=== PATIENT | male | born 1965 | race Caucasian/White ===

== ENCOUNTER → 2017-08-03 | Outpatient (CLI) | payer OTHER ==
[~2017-08-03] MED LIST: ACET500T57 PO; ASPI-435 PO; CLB/200 PO; MTR600XX PO; OXYC1TAB3 PO
== END | disposition home or self-care (01) ==
LOC: C.RDSM 13:23
PROVIDERS: ATTEND Orthopaedic Surgery
DX: M25.562 Pain in left knee (principal)

== ENCOUNTER → 2017-08-04 | Outpatient (CLI) | payer OTHER ==
[2017-08-04 14:16] LABS: BASO % 0.3 %; BASO ABS # 0.03 K/uL (0-0.2); EOS % 0.7 %; HEMATOCRIT 44.8 % (42-52); IG% 0.2 %; LYMPH % 29.4 %; LYMPH ABS # 2.58 K/uL (1.2-3.4); MEAN CORPUSCULAR HEMOGLOBIN 31.5 pg (25-34); MONO % 7.5 %; NEUT % 61.9 %; PLATELET COUNT 337 K/uL (130-400); RED BLOOD COUNT 4.98 M/uL (4.7-6.1); WHITE BLOOD COUNT 8.77 K/uL (4.8-10.8)
[2017-08-04 14:27] LABS: BLOOD UREA NITROGEN 23 mg/dl (7-18); BUN/CREATININE RATIO 19.4 (10-20); CALCIUM 8.9 mg/dl (8.5-10.1); CARBON DIOXIDE 24 mmol/L (21-32); CHLORIDE 109 mmol/L (98-107); GLUCOSE 83 mg/dl (70-99); POTASSIUM 4.3 mmol/L (3.5-5.1); SODIUM 143 mmol/L (136-145)
[2017-08-04 14:31] LABS: COMPLETE YES
--- NOTE | 2017-08-08 15:03 | CODING QUERY NO DIAGNOSIS ---
: 1965 TREATMENT RENDERED WITHOUT A DIAGNOSIS To promote full compliance with coding requirements relating to patient care, physician participation is requested in all cases of auditing specialist uncertainty. Please assist us with providing a diagnosis/symptom for the test(s) below: A diagnosis/symptom was not documented on your Order. A valid diagnosis/symptom is required to bill all insurances. Please remember that we are unable to code a diagnosis of rule out, probable, possible, questionable, or suspected. Tests that require a diagnosis: DOS: 08/04/17 * CBC DIAGNOSIS: * BASIC METABOLIC DIAGNOSIS: * ELECTROLYTE DIAGNOSIS: Provider Signature: Date: Thank you Sharmaine Serrano Health Information Management Once completed, please kindly fax back to [phone] For questions please call [phone]
== END ==
LOC: C.LABSPEC 14:07
DX: Z01.89 Encounter for other specified special examinations (principal)

== ENCOUNTER → 2017-08-08 | Day surgery (SDC) | payer OTHER ==
[2017-08-05 08:39] VITALS: Ht 185.4 cm; Wt 61.4 kg
[~2017-08-08] VITALS: Ht 185.4 cm; Wt 61.4 kg
[~2017-08-08] MED LIST changes: +ATROPINE SULFATE 0.1 MG/ML 5ML SYR IV PRN; +CEFAZOLIN 2000 MG/60 ML D5W IV SCH; +DEXAMETHASONE SOD INJ 4 MG/ML VIAL ONE; +EpHEDrine SULFATE INJ 50 MG/ML AMP IV PRN; +EpINEphrine HCL INJ 1 MG/ML 5ML SYRINGE ONE; +FENTANYL CITRATE INJ 50 MCG/1 ML 2 ML VIAL ONE; +LACTATED RINGER'S 1000ML 1,000 ML IV SCH; +LIDO 2%/EPINEPHRINE 1:100000 20 ML VIAL INFIL ONE; +LIDOCAINE HCL 2% 2 ML VIAL (20MG/ML) ONE; +METOCLOPRAMIDE HCL INJ 5 MG/ML 2 ML VIAL IV PRN; +MIDAZOLAM HCL 1 MG/ML 2ML VIAL ONE; +MoRPHine SULFATE 4 MG/ML 1 ML CARP\\VIAL IV PRN; +ONDANSETRON INJ 2 MG/ML 2 ML VIAL IV PRN; +ONDANSETRON INJ 2 MG/ML 2 ML VIAL ONE; +OXYCODONE/ACETAMINOPHEN 5-325 TAB PO PRN; +PROMETHAZINE HCL INJ 12.5 MG in SODIUM CHLORIDE 0.9% 50ML 50 ML IV PRN; +PROPOFOL IV EMULSION 10 MG/ML 20 ML VIAL IV ONE; +ROPIVACAINE 0.5% 5 MG/ML 30 ML VIAL ONE; +SODIUM CHLORIDE 0.9% 1000ML 1,000 ML IV SCH
--- NOTE | 2017-08-08 06:26 | History & Physical Bridge - SC ---
H&P Re-Evaluation Bridge Note: I have examined the patient, reviewed the History & Physical and in the interval since the performance of the History & Physical I have noted the following changes of clinical significance: No changes noted
--- NOTE | 2017-08-08 09:56 | [facility] Post Operative Brief Note ---
Immediate Operative Summary Operative Date Aug 08, 2017. Pre-Operative Diagnosis Left Knee Displaced Fracture Of Tibial Spine Post-Operative Diagnosis Same Procedure(s) Performed Left Knee Arthroscopic Assistsed Fixation Of Tibial [place] Fracture, Partial Medial Meniscectomy, Synovectomy Surgeon Dr. Trent Photography Manager Surgeon(s) Albin Al PA-C Estimated Blood Loss 25 ml Findings tibial eminence fracture reduced and stabilized with 4 number two fiberwire sutures through bone tunnels. Suprapatellar plica excised. Medial meniscus tear non repairable, so excised. Fluids (cc crystalloids) 1200 cc Specimens None Drains None Anesthesia LMA with local Complication(s) None Disposition Recovery Room / PACU [facility]
--- NOTE | 2017-08-08 10:06 | [facility] Operative Report ---
Operative Report Operative Date Aug 08, 2017. Pre-Operative Diagnosis Left Knee Displaced Fracture Of Tibial Spine Post-Operative Diagnosis Same Procedure(s) Performed Left Knee Arthroscopic Assistsed Fixation Of Tibial [place] Fracture, Partial Medial Meniscectomy, Synovectomy Surgeon Dr. Trent Coat Maker Surgeon(s) Albin Al PA-C Estimated Blood Loss 25 ml Findings Anterior cruciate ligament was attached to the tibial eminence fracture which was comminuted. A bucket handle medial meniscus tear. Near complete suprapatellar plica Fluids (cc crystalloids) 1200 cc Specimens None Drains None Anesthesia LMA with local Complication(s) None Disposition Recovery Room / PACU Implants None Indications Mr. Jarquin is a 52-year-old gentleman who slipped while in assisted and sustained a tibial eminence fracture of the left knee. CT scan showed it to be displaced. He had a positive Tonie's test with popping in the front of his knee. He is unable to achieve full extension. Surgery is indicated to reduce and fix the fracture. We do not have a preoperative MRI scan but we did discuss the possibility of finding other pathology in his knee. All of his questions were answered. Informed consent was signed. Description of Procedure Patient was identified in the preoperative holding area. Surgical site was marked. He was brought back to the main operating room was placed the operative table in anesthesia was administered. All bony promises were padded. Perioperative antibiotics were administered. He was prepped and draped in the normal sterile fashion. Incision multidiscipline time was called. All neuroma in agreement. We began by creating anterior lateral portal. A superior medial outflow portal was created under direct visualization. There was a large amount of hematoma in the knee which was irrigated out. A standard anterior medial portal was created. Diagnostic arthroscopy was then undertaken revealing the following findings: There was a bucket-handle tear of the medial meniscus with a radial component extending from the body all the way to the root. This was felt to be a nonrepairable pattern. The articular chondral surfaces of the medial compartment showed grade 1 changes on the medial femoral condyle and medial tibial plateau diffusely. Lateral compartment showed grade 1 chondromalacia of the lateral tibial plateau and lateral femoral condyle. The lateral meniscus showed some mild fraying of the central edge which was debrided with the shaver. The notch showed the anterior cruciate ligament to be intact with attached to the displaced tibial eminence fracture. There were small osteochondral fragments along the anterior medial and medial aspects of the fracture fragment which were removed to prevent becoming a loose body. The suprapatellar pouch showed a complete suprapatellar plica. Once the diagnostic arthroscopy was completed the cautery wand and biter was used to excise the suprapatellar pouch. The synovectomy was continued into the medial and lateral compartments for a major synovectomy. We exposed the base of the anterior cruciate ligament. We were able to reduce the fracture into its anatomic location. It was not trapped under the inner meniscal ligament. I then introduced labral scorpion suture lasso to pass 3 FiberWire sutures through the substance of the anterior cruciate ligament. Drill tunnels were placed on the medial and lateral aspects of the fracture. A Hewson suture lasso was used to pass the sutures down through the tibia onto the anterior medial surface of the proximal tibia. I then pulled on these 3 sets of sutures and was able to reduce the fracture fairly well. However there is a part of his anterior anterior cruciate ligament at look like it needed another suture. Therefore I passed a fourth #2 FiberWire suture through the front of the anterior cruciate ligament and shuttled this down through the bone tunnels as well. At this point the arthroscope was removed. The leg was brought to full extension. Mini C-arm fluoroscopy was brought in. The strands of sutures were pulled on and I was able to reduce the fracture under fluoroscopic guidance. I then tied down each the sand strands of sutures individually. Excellent fixation was obtained. Next the camera was placed back in the joint. We confirmed the adequacy of reduction of her fracture. I then performed a partial medial meniscectomy using comminution of biters and shaver. The suprapatellar plica was excised and cautery was used to ensure there would be minimal postoperative bleeding. The arthroscopic inserts were then removed from the joint. 30 mL ropivacaine was used for postoperative pain control injected the portal sites with 10 mL into the knee. Wounds were closed with inverted 3-0 Monocryl sutures. Steri- Strips 2 x 2's and Tegaderms were placed. The patient is placed in a hinge knee brace brace locked into 10 of hyperextension. He was transferred awoken from anesthesia and transferred recovery room in stable condition. Postoperative course: The patient will be discharged back to his present facility today. He will follow up tomorrow in clinic for a wound check as well as to me with her physical therapist. We'll have him work on immediate range of motion exercises while nonweightbearing. He'll be able to ambulate with a hinge knee brace locked in full extension toe-touch weightbearing. DVT prophylaxis is with aspirin. I attest to the content of the Intraoperative Record and any orders documented therein. Any exceptions are noted below.
[2017-08-08] MEDS: FENTANYL CITRATE INJ 50 MCG/1 ML 2 ML VIAL IV PRN ×4 (10:13→10:44)
--- NOTE | 2017-08-08 10:14 | [facility] Operative Report ---
Operative Report Operative Date Aug 08, 2017. Pre-Operative Diagnosis Left Knee Displaced Fracture Of Tibial Spine Post-Operative Diagnosis Same Procedure(s) Performed Left Knee Arthroscopic Assistsed Fixation Of Tibial [place] Fracture, Partial Medial Meniscectomy, Synovectomy Surgeon Dr. Trent Chemistry Specialist Surgeon(s) Albin Al PA-C Estimated Blood Loss 25 ml Findings same Fluids (cc crystalloids) 1200 cc Specimens None Drains none Anesthesia general Complication(s) None Disposition Recovery Room / PACU Implants see Dr. Trent's operative note for further findings and detail Indications sustained injury to left lower extremity, CT scan obtained of the left lower extremity, surgery recommended, consents signed. Description of Procedure taken to the OR, prepped and draped, I was present the entire case, please see Dr. Trent's op note for further findings I attest to the content of the Intraoperative Record and any orders documented therein. Any exceptions are noted below.
--- NOTE | 2017-08-08 10:24 | Discharge Instructions-SurgCtr ---
Discharge Instructions Date of Service Aug 08, 2017. Visit Reason for Visit: Left Knee Displaced Fracture Of Tibial Spine Discharge Discharge Diagnosis / Problem: left knee arthroscopy Discharge Goals Goal(s): Decrease discomfort, Improve function, Increase independence Activity Recommendations Activity Limitations: as noted below Lifting Limitations: until after follow-up appointment Exercise/Sports Limitations: until after follow-up appointment Shower/Bathe: keep incision dry Weightbearing Status: Left partial (with crutches and brace locked in full extension. When seated/lying you may open the brace to work on range of motion) Anesthesia .. PLEASE ALLOW PATIENT TO BE IN THE [facility] DUE TO REQUIRING THE USE OF A BRACE THAT HAS METAL IMPLANTED Post Anesthesia Instructions: If you have had General Anesthesia or IV Sedation: * Do not drive today. * Resume driving when surgeon permits. * Do not make important decisions or sign legal documents today. * Call surgeon for: 1. Temperature elevations greater than 101 degrees F. 2. Uncontrollable pain. 3. Excessive bleeding. 4. Persistent nausea and vomiting. 5. Medication intolerance (nausea, vomiting or rash). * For nausea and vomiting use only clear liquids such as: tea, soda, bouillon until nausea subsides, then gradually increase diet as tolerated. * If you have any concerns or questions, call your surgeon's office. If physician is unavailable and it is an emergency, call 911 or go to the nearest emergency room. . Instructions / Follow-Up Instructions / Follow-Up DIET: * Resume previous diet. MEDICATIONS: * Please take your prescriptions as instructed at your pre-op appointment and/ or see medication discharge instructions listed above. * If concerns develop, call your physician's office at . SPECIAL CARE INSTRUCTIONS: * Ice/Elevate as instructed. * Keep dressing clean, dry, intact. * Your surgical extremity may be discolored due to prepping agents used on the skin. A bluish-green tint is a normal variant and should not cause alarm. Call your doctor at [phone] if: * Temperature above 101 degrees * Pain not relieved by pain medicine ordered * There is increased drainage or redness from any incision * You have any unanswered questions, problems or concerns. FOLLOW UP VISIT: * If not already scheduled, please call the office at to schedule a follow-up appointment. Diet Recommendations Home Diet: resume previous diet Procedures Procedures Performed: Left Knee Arthroscopic Assistsed Fixation Of Tibial [place] Fracture, Partial Medial Meniscectomy, Synovectomy Pending Studies Studies pending at discharge: no Medical Emergencies . Who to Call and When: Medical Emergencies: If at any time you feel your situation is an emergency, please call 911 immediately. . Non-Emergent Contact Non-Emergency issues call your: Primary Care Provider . . "Provider Documentation" section prepared by Levy Al. . [place] Drug Monitoring Program Search Results: no issues identified
[2017-08-08] MEDS: HYDROmorphone INJ 1 MG/ML SYR IV PRN ×2 (10:57→11:07)
[2017-08-08 11:00] VITALS: TEMP 37.5
[2017-08-08 12:26] VITALS: BP 124/81; PULSE 96; O2SAT 96
--- NOTE | 2017-08-08 12:31 | Anesthesia Progress Nt - [facility] ---
Anesthesia Post Op Note Date & Time Aug 08, 2017 at 12:30 Vital Signs Pain Intensity: 8.0 Vital Signs Past 12 Hours Date Time Temp Pulse Resp B/P (MAP) Pulse Ox O2 Delivery O2 Flow Rate FiO2 08/08/17 12:26 96 20 124/81 (95) 96 Room Air 08/08/17 11:46 97 20 142/88 (106) 97 Room Air 08/08/17 11:15 144/87 08/08/17 11:14 79 11 91 08/08/17 11:14 78 11 08/08/17 11:13 78 17 92 08/08/17 11:13 78 17 08/08/17 11:10 150/97 08/08/17 11:08 77 9 99 08/08/17 11:08 78 9 08/08/17 11:05 159/98 08/08/17 11:03 84 12 98 08/08/17 11:03 84 12 08/08/17 11:00 37.5 83 12 165/102 98 Room Air 08/08/17 11:00 165/102 08/08/17 10:58 80 14 08/08/17 10:58 79 14 95 08/08/17 10:57 85 14 96 08/08/17 10:57 85 14 08/08/17 10:55 176/94 08/08/17 10:52 78 20 08/08/17 10:52 77 20 99 08/08/17 10:50 163/95 08/08/17 10:47 77 14 08/08/17 10:47 77 14 97 08/08/17 10:45 165/102 08/08/17 10:42 77 16 08/08/17 10:42 77 16 100 08/08/17 10:40 153/105 08/08/17 10:37 76 16 100 08/08/17 10:37 76 16 08/08/17 10:36 175/96 08/08/17 10:32 80 15 08/08/17 10:32 80 15 98 08/08/17 10:30 159/107 08/08/17 10:27 80 18 178/94 99 08/08/17 10:27 80 18 08/08/17 10:26 173/155 08/08/17 10:23 79 16 08/08/17 10:23 79 16 99 08/08/17 10:21 147/121 08/08/17 10:18 86 17 08/08/17 10:18 17 08/08/17 10:17 143/90 08/08/17 10:13 90 23 08/08/17 10:13 91 23 100 08/08/17 10:08 84 15 135/106 08/08/17 10:08 15 08/08/17 10:03 36.5 94 12 135/106 96 Diffusion Mask 10 08/08/17 06:30 36.5 71 16 130/85 (100) 97 Room Air Notes Mental Status: alert / awake / arousable, participated in evaluation Pt Amnestic to Procedure: Yes Nausea / Vomiting: adequately controlled Pain: adequately controlled Airway Patency, RR, SpO2: stable & adequate BP & HR: stable & adequate Hydration State: stable & adequate Anesthetic Complications: no major complications apparent Doing well. Pain controlled. VSS
== END | disposition home or self-care (01) ==
LOC: X.SURG 06:12
PROVIDERS: ATTEND Orthopaedic Surgery
DX: S82.112A Displaced fracture of left tibial spine, initial encounter for closed fracture (principal); S83.242A Other tear of medial meniscus, current injury, left knee, initial encounter; M67.52 Plica syndrome, left knee; W18.40XA Slipping, tripping and stumbling without falling, unspecified, initial encounter; Y92.149 Unspecified place in prison as the place of occurrence of the external cause; Z87.891 Personal history of nicotine dependence

== ENCOUNTER → 2017-08-23 | Outpatient (CLI) | payer OTHER ==
[~2017-08-23] MED LIST changes: -ATROPINE SULFATE 0.1 MG/ML 5ML SYR IV PRN; -CEFAZOLIN 2000 MG/60 ML D5W IV SCH; -DEXAMETHASONE SOD INJ 4 MG/ML VIAL ONE; -EpHEDrine SULFATE INJ 50 MG/ML AMP IV PRN; -EpINEphrine HCL INJ 1 MG/ML 5ML SYRINGE ONE; -FENTANYL CITRATE INJ 50 MCG/1 ML 2 ML VIAL ONE; -LACTATED RINGER'S 1000ML 1,000 ML IV SCH; -LIDO 2%/EPINEPHRINE 1:100000 20 ML VIAL INFIL ONE; -LIDOCAINE HCL 2% 2 ML VIAL (20MG/ML) ONE; -METOCLOPRAMIDE HCL INJ 5 MG/ML 2 ML VIAL IV PRN; -MIDAZOLAM HCL 1 MG/ML 2ML VIAL ONE; -MTR600XX PO; -MoRPHine SULFATE 4 MG/ML 1 ML CARP\\VIAL IV PRN; -ONDANSETRON INJ 2 MG/ML 2 ML VIAL IV PRN; -ONDANSETRON INJ 2 MG/ML 2 ML VIAL ONE; -OXYC1TAB3 PO; -OXYCODONE/ACETAMINOPHEN 5-325 TAB PO PRN; -PROMETHAZINE HCL INJ 12.5 MG in SODIUM CHLORIDE 0.9% 50ML 50 ML IV PRN; -PROPOFOL IV EMULSION 10 MG/ML 20 ML VIAL IV ONE; -ROPIVACAINE 0.5% 5 MG/ML 30 ML VIAL ONE; -SODIUM CHLORIDE 0.9% 1000ML 1,000 ML IV SCH
== END | disposition home or self-care (01) ==
LOC: C.RDSM 15:45
PROVIDERS: ATTEND Orthopaedic Surgery
DX: M25.562 Pain in left knee (principal)

== ENCOUNTER → 2017-11-17 | Outpatient (CLI) | payer OTHER ==
[~2017-11-17] MED LIST changes: -ACET500T57 PO; -CLB/200 PO
== END | disposition home or self-care (01) ==
LOC: C.MAMM 08:27
PROVIDERS: ATTEND Family Medicine
DX: M85.80 Other specified disorders of bone density and structure, unspecified site (principal)

== ENCOUNTER → 2017-12-01 | Outpatient (CLI) | payer OTHER | END | disposition home or self-care (01) | LOC: C.RDSM 17:18 | PROVIDERS: ATTEND Orthopaedic Surgery | DX: Z87.81 Personal history of (healed) traumatic fracture (principal) ==

== ENCOUNTER 2024-07-08 23:07 | Inpatient (IN) ==
[2024-07-08] MEDS ORDERED: VANCOMYCIN CONSULT ACTIVE PRN (23:32)
--- NOTE | 2024-07-09 00:06 | Emergency Department Note ---
Impression & Plan Abdominal wound dehiscence, Sepsis ED Provider Note ED Provider Note NAME: CHAS [id number] BRONWYN AGE:59 SEX: Male : 1965 ARRIVES VIA: EMS INFORMANT: Patient ED PROVIDER(s): Michelle Marshall DO CHIEF COMPLAINT: Drainage from wound HPI: This is a 59-year-old male presents emergency department from a local correctional facility due to concern for leakage/drainage from a wound. Patient states this began earlier today. He states he has been having fevers and chills, had decreased appetite, however no overt vomiting, no diarrhea. States he did have some increased pain along the abdominal wound. Patient states he was hospitalized on the [place] for a month following complications from a surgery for his gallbladder. Patient cannot provide many details. He states he is not currently taking any antibiotics. PAST MEDICAL HISTORY:See Below PAST SURGICAL HISTORY:See Below FAMILY HISTORY:See Below SOCIAL HISTORY:See Below HOME MEDICATIONS:See Below ALLERGIES:See Below VITALS:See Below PHYSICAL EXAMINATION: GENERAL: alert, well appearing, well nourished, no distress, non-toxic EYE EXAM: normal conjunctiva, PERRL and EOM's grossly intact OROPHARYNX: no exudate, no erythema, lips, buccal mucosa, and tongue normal and mucous membranes are moist NECK: supple, no nuchal rigidity, no adenopathy, non-tender LUNGS: Clear to auscultation. Normal chest wall mechanics, no w/r/r HEART: no murmurs, S1 normal and S2 normal ABDOMEN: abdomen soft, dehiscence noted from the superior aspect of the midline vertical incision with active purulent drainage noted, surrounding induration approximately 6 cm in radius decrease bowel sounds, no masses, no rebound or guarding. BACK: Back is symmetrical on inspection and there is no deformity, no midline tenderness, no CVA tenderness. SKIN: no rashes, petechiae, orbruising UPPER EXTREMITIES: upper extremities are grossly normal. FROM, nml pulses b/l. LOWER EXTREMITIES: No pitting edema. FROM, nml pulses b/l. NEURO EXAM: Normal sensorium, cranial nerves II-XII grossly intact, normal speech, no facial droop,nogross weakness of arms, no gross weakness of legs. Gross sensation intact. No ataxia. Vital Signs: reviewed and remarkable Differential Diagnosis: abscess, wound dehiscence, seroma, intraabdominal infection, cellulitis, retained suture, sbo, perforation, sepsis, as well as others were considered MEDICAL DECISION MAKING: This is a 59-year-old male presents emergency department from a local correctional facility due to concern for wound dehiscence and possible infection. Patient with complicated recent surgical course after spending 1 month at [facility] in [place] with several operations. Patient ill-appearing on arrival, and copious purulent material noted draining from the superior edge of his vertical midline incision where the wound had dehisced. Patient noted to be tachycardic on arrival however was otherwise afebrile and hemodynamically stable. Labs drawn and sent, IV established, EKG performed at bedside and interpreted by me and patient monitor on telemetry. I was able to express copious amounts of discharge from the area of wound dehiscence, a culture was obtained and sent additionally. Patient started on IV fluids, blood culture obtained, and IV antibiotics added. Patient sent for CT of the abdomen and pelvis. CT read shows this to be a superficial abdominal wall abscess, and does not note any deeper wound infection or other intra-abdominal abscesses. Patient noted to have a leukocytosis here and did have persistent tachycardia. Patient given IV Tylenol for pain. He did receive 30 mL/KG of IV fluids. Heart rate did continue to improve with IV fluid resuscitation. Given concern for evolving sepsis, wound dehiscence, and wound infection, case discussed with on- call general surgery. They felt patient could be admitted here by medicine and seen in consult and did not need urgent transfer to [place]. Case discussed with the hospitalist team for additional evaluation and management. Consultation(s): 0004: Discussed with YOUNG Ruiz in [facility] They confirmed patient was discharged from [facility] on June 06 and went to [facility] for 1 week. On June 14 he returned to the [facility] and was continued on micafungin and Zosyn until June 21. They state a repeat blood culture was drawn on Tuesday due to concern for a decline in the patient's appetite, weakness, fatigue, and concern for following up his recent complicated course and infections. Patient had an outpatient chest x-ray and KUB which were reassuring. This evening then patient developed a temperature to 100.3 F at the facility. Staff also note patient had begun refusing his Lovenox injections after July 06. They do state the 1 drain noted has not had any drainage and seems to be full of air, and the second drain has 5 to 10 mL almost daily. 0533: Discussed with Dr. Carballo. Feels patient can be admitted here and he will see him in consult. 0545: Discussed with Dr. Clark, [facility] hospitalist, for additional evaluation and mgmt. ER Treatment Provided: See below Diagnostics Interpreted By Me: -ECG: Normal sinus at 97, normal axis, normal intervals, no acute ST/T wave changes -Cardiac Monitoring: An order was placed for continuous cardiac monitoring. The monitor shows a rate of 112 with sinus tachycardia rhythm. -Laboratory studies: As stated above and show below. -Imaging studies: CT A/P: No intra-abdominal abscess, superficial abscess noted along incision Triage Nursing Note Reviewed Prior/Outside Records Reviewed -discharge summary from [facility] on 06/06/2024 reviewed Critical Care: Critical care of 48 min performed to assess and manage high likelihood of life- threatening wound infection and dehiscence, involving labs and imaging performed with assessment to evaluate wound infection and dehiscence diagnosis with frequent reassessment. This time includes bedside time, treatment discussions with patient/family/consultants, documentation time and excludes procedure time. Past Med/Surg History Problem List Sepsis (Acute) Abdominal wound dehiscence (Acute) Social History Smoking Status: Never smoker Second Hand Exposure: Yes; Do You Dip or Chew Tobacco: No; Tobacco Cessation Education Requested by Patient: No Hx Alcohol Use: No Hx Substance Use: No Preferred Language: Syriac Legal Project Manager Required: No Beliefs That Will Affect Care: None Current Living Situation: Other Current Living Situation Comment: [facility] Other Information That Helps Us Care for You: No Feels Safe at Home: Yes Safety Concerns: Feels Safe At This Time Assistive Devices: None Allergies Allergies Allergy/AdvReac Type Severity Reaction Status Date / Time No Known Allergies Allergy Verified 07/09/24 00:20 Home Meds Home Medications Medication Instructions Recorded Confirmed acetaminophen 500 mg tablet 1,000 mg PO TID PRN Pain 07/09/24 07/09/24 (Tylenol Extra Strength) cefazolin 1 gram/50 mL in dextrose 50 ml IV Q6H 07/09/24 07/09/24 (iso-osmotic) intravenous piggyback cyanocobalamin (vitamin B-12) 1,000 mcg IM WK 07/09/24 07/09/24 1,000 mcg/mL injection solution docusate sodium 100 mg capsule 100 mg PO BID PRN Constipation 07/09/24 07/09/24 enoxaparin 40 mg/0.4 mL 40 mg subcut DAILY 07/09/24 07/09/24 subcutaneous syringe (Lovenox) magnesium hydroxide 400 mg/5 mL 15 ml PO DAILY PRN Constipation 07/09/24 07/09/24 oral suspension (Milk of Magnesia) nortriptyline 50 mg capsule 50 mg PO HS 07/09/24 07/09/24 omeprazole 20 mg capsule,delayed 20 mg PO DAILY 07/09/24 07/09/24 release polyethylene glycol 3350 17 17 g PO DAILY PRN Constipation 07/09/24 07/09/24 gram/dose oral powder (Miralax) sennosides 15 mg tablet (Laxative 15 mg PO DAILY 07/09/24 07/09/24 (sennosides)) Results & Data (ED) Vital Signs Vital Signs - 24 hr 07/08/24 23:13 07/08/24 23:45 07/08/24 23:53 Temperature 36.7 C 37.1 C Temperature Source Oral Oral Pulse Rate 132 H 114 H Pulse Rate [Right Finger] 113 H Respiratory Rate 15 Blood Pressure 113/69 Blood Pressure [Right Arm] 116/77 Blood Pressure Mean 83 Blood Pressure Mean [Right Arm] 90 Pulse Oximetry 95 94 Oxygen Delivery Method Room Air Room Air Sepsis Recent Fever Within 48 Hours Yes Sepsis New/Unexplained Change in Mental Status No Sepsis Action Taken by Nursing No Action Required 07/09/24 01:00 07/09/24 03:00 07/09/24 03:45 Temperature Temperature Source Pulse Rate 94 H Pulse Rate [Right Finger] 105 H 94 H Respiratory Rate 25 H 27 H Blood Pressure Blood Pressure [Right Arm] 140/82 104/72 Blood Pressure Mean Blood Pressure Mean [Right Arm] 101 82 Pulse Oximetry 95 94 Oxygen Delivery Method Room Air Room Air Sepsis Recent Fever Within 48 Hours Sepsis New/Unexplained Change in Mental Status Sepsis Action Taken by Nursing 07/09/24 05:00 Temperature Temperature Source Pulse Rate Pulse Rate [Right Finger] 88 Respiratory Rate 21 Blood Pressure Blood Pressure [Right Arm] 91/61 L Blood Pressure Mean Blood Pressure Mean [Right Arm] 71 Pulse Oximetry 95 Oxygen Delivery Method Room Air Sepsis Recent Fever Within 48 Hours Sepsis New/Unexplained Change in Mental Status Sepsis Action Taken by Nursing Laboratory Data 07/10/24 05:33 07/10/24 05:33 Lab Results 07/09/24 07/09/24 Range/Units 01:01 01:46 WBC 18.86 H (4.8-10.8) K/ul RBC 3.79 L (4.70-6.10) M/uL Hgb 10.1 L (14.0-18.0) g/dl Hct 31.8 L (42.0-52.0) % MCV 83.9 (80.0-100.0) fL MCH 26.6 (25.0-34.0) pg MCHC 31.8 L (32.0-36.0) g/dL RDW Std Deviation 47.6 H (36.4-46.3) fL RDW Coeff of [place] 15.7 H (11.5-14.5) % Plt Count 515 H (130-400) K/uL MPV 9.5 (9.4-12.4) fL Immature Gran % (Auto) 0.5 % Neut % (Auto) 73.4 % Lymph % (Auto) 15.2 % [place] % (Auto) 8.9 % Eos % (Auto) 1.6 % Baso % (Auto) 0.4 % Neut # (Auto) 13.86 H (1.40-6.50) K/uL Lymph # (Auto) 2.86 (1.20-3.40) K/uL [place] # (Auto) 1.68 H (0.11-0.59) K/uL Eos # (Auto) 0.30 (0.00-0.50) K/uL Baso # (Auto) 0.07 (0.00-0.20) K/uL Immature Gran # (Auto) 0.09 (0.01-0.20) K/uL PT 12.3 H (9.0-12.0) Seconds INR 1.1 (0.9-1.1) Sodium 133 L (136-145) mmol/L Potassium 3.3 L (3.5-5.1) mmol/L Chloride 96 L (98-107) mmol/L Carbon Dioxide 28 (21-32) mmol/L Anion Gap 9 (3-11) BUN 22 (6-23) mg/dl Creatinine 0.73 (0.6-1.4) mg/dl Est Cr Clr Drug Dosing 102.3 ml/min Est GFR ( Amer) 117.7 ml/min Est GFR (Non-Af Amer) 101.5 ml/min BUN/Creatinine Ratio 30.1 H (10-20) Glucose 126 H (70-99(Fasting)) mg/dl Calcium 8.9 (8.6-10.3) mg/dl Magnesium 1.7 (1.7-2.4) mg/dl Total Bilirubin 0.7 (0.2-1.0) mg/dl AST 22 (13-39) U/L ALT 13 (7-52) U/L Alkaline Phosphatase 123 H (34-104) U/L Troponin I High Sens 15.5 (0-20) pg/ml Total Protein 8.3 (6.0-8.3) gm/dl Albumin 3.4 (3.4-5.0) gm/dl Globulin 4.9 H (2.5-4.0) gm/dl Albumin/Globulin Ratio 0.7 L (0.9-2) Lipase 167 H (11-82) U/L Procalcitonin 0.13 (0-0.5) ng/ml Administered Medications Acetaminophen (Acetaminophen 325 Mg Tab) 650 mg PO Q4H PRN PRN Reason: Pain or Fever Stop: 08/09/24 00:16 Last Admin: 07/10/24 00:30 Dose: 650 mg Documented By: JODI Piperacillin Sod/Tazobactam Sod (Zosyn) 4.5 gm in 100 mls @ 25 mls/hr IV Q8H [facility] Stop: 07/16/24 07:59 Last Admin: 07/10/24 08:37 Dose: 25 mls/hr Documented By: Infusion: 07/10/24 03:56 Dose: Infused Documented By: Admin: 07/09/24 23:53 Dose: 25 mls/hr Documented By: Infusion: 07/09/24 19:31 Dose: Infused Documented By: Admin: 07/09/24 15:17 Dose: 25 mls/hr Documented By: Infusion: 07/09/24 11:16 Dose: Infused Documented By: Admin: 07/09/24 07:49 Dose: 25 mls/hr Documented By: ALEXSANDER Dextrose/Sodium Chloride (D5w And Nss) 1,000 mls @ 80 mls/hr IV .[id number] AYLIN Stop: 08/08/24 14:29 Last Admin: 07/10/24 03:53 Dose: 80 mls/hr Documented By: Infusion: 07/10/24 03:53 Dose: Infused Documented By: Admin: 07/09/24 15:17 Dose: 80 mls/hr Documented By: CLAYTON Vancomycin HCl 1,000 mg/ (Sodium Chloride) 270 mls @ 200 mls/hr IV Q8H AYLIN Stop: 07/20/24 07:59 Last Admin: 07/10/24 08:37 Dose: 200 mls/hr Documented By: JONES Morphine Sulfate (Morphine Sulfate 2 Mg/Ml Carp) 1 mg IV Q4H PRN PRN Reason: Moderate Pain (Scale 4, 5, 6) Stop: 07/23/24 13:59 Last Admin: 07/09/24 20:03 Dose: 1 mg Documented By: JODI Morphine Sulfate (Morphine Sulfate 2 Mg/Ml Carp) 2 mg IV Q6H PRN PRN Reason: Severe Pain (Scale 7, 8, 9,10) Stop: 07/23/24 13:59 Last Admin: 07/10/24 06:33 Dose: 2 mg Documented By: Admin: 07/10/24 00:28 Dose: 2 mg Documented By: JODI Nortriptyline HCl (Nortriptyline Hcl 25 Mg Cap) 50 mg PO HS [facility] Stop: 08/08/24 20:59 Last Admin: 07/09/24 20:04 Dose: 50 mg Documented By: JODI Pantoprazole Sodium (Pantoprazole 40 Mg Tab) 40 mg PO DAILY AYLIN Stop: 08/08/24 09:29 Last Admin: 07/10/24 08:37 Dose: 40 mg Documented By: Admin: 07/09/24 10:04 Dose: 40 mg Documented By: ALEXSANDER Discontinued Medications Sodium Chloride (Nss) 1,000 mls @ 250 mls/hr IV .Q4H AYLIN Stop: 08/07/24 23:44 Last Infusion: 07/09/24 12:26 Dose: Infused Documented By: Infusion: 07/09/24 12:26 Dose: Infused Documented By: Admin: 07/09/24 07:49 Dose: 250 mls/hr Documented By: Infusion: 07/09/24 07:39 Dose: Infused Documented By: Infusion: 07/09/24 04:16 Dose: 250 mls/hr Documented By: Infusion: 07/09/24 03:48 Dose: 0 mls/hr Documented By: Admin: 07/09/24 03:46 Dose: 250 mls/hr Documented By: Infusion: 07/09/24 03:46 Dose: Infused Documented By: Admin: 07/09/24 00:50 Dose: 250 mls/hr Documented By: OLAYINKA Vancomycin HCl 1,250 mg/ (Sodium Chloride) 525 mls @ 200 mls/hr IV NOW ONE Stop: 07/09/24 02:09 Last Infusion: 07/09/24 04:18 Dose: Infused Documented By: Admin: 07/09/24 00:51 Dose: 200 mls/hr Documented By: OLAYINKA Piperacillin Sod/Tazobactam Sod (Zosyn) 4.5 gm in 100 mls @ 200 mls/hr IV NOW ONE Stop: 07/09/24 00:01 Last Infusion: 07/09/24 01:55 Dose: Infused Documented By: Admin: 07/09/24 00:55 Dose: 200 mls/hr Documented By: OLAYINKA Sodium Chloride (Nss) 1,000 mls @ 999 mls/hr IV .Q1H1M ONE Stop: 07/09/24 03:37 Last Infusion: 07/09/24 04:17 Dose: Infused Documented By: Admin: 07/09/24 02:47 Dose: 999 mls/hr Documented By: OLAYINKA Acetaminophen (Ofirmev) 1,000 mg in 100 mls @ 400 mls/hr IV NOW STA Stop: 07/09/24 03:12 Last Infusion: 07/09/24 04:16 Dose: Infused Documented By: Admin: 07/09/24 03:43 Dose: 400 mls/hr Documented By: OLAYINKA Sodium Chloride (Nss) 1,000 mls @ 999 mls/hr IV .Q1H1M ONE Stop: 07/09/24 05:54 Last Infusion: 07/09/24 07:40 Dose: Infused Documented By: Admin: 07/09/24 05:39 Dose: 999 mls/hr Documented By: OLAYINKA Sodium Chloride (Nss) 500 mls @ 500 mls/hr IV .Q1H AYLIN Stop: 07/09/24 07:44 Last Infusion: 07/09/24 12:26 Dose: Infused Documented By: Admin: 07/09/24 10:05 Dose: 500 mls/hr Documented By: ALEXSANDER Sodium Chloride (Nss) 1,000 mls @ 70 mls/hr IV .[id number] AYLIN Stop: 08/08/24 09:10 Last Infusion: 07/09/24 15:33 Dose: Infused Documented By: Admin: 07/09/24 10:05 Dose: 125 mls/hr Documented By: ALEXSANDER Acetaminophen (Ofirmev) 1,000 mg in 100 mls @ 400 mls/hr IV Q8H PRN PRN Reason: Pain or Fever Stop: 07/12/24 11:44 Last Infusion: 07/09/24 13:03 Dose: Infused Documented By: Admin: 07/09/24 12:26 Dose: 400 mls/hr Documented By: ALEXSANDER Vancomycin HCl 1,250 mg/ (Sodium Chloride) 275 mls @ 200 mls/hr IV Q12H [facility] Stop: 07/19/24 09:59 Last Infusion: 07/09/24 23:52 Dose: Infused Documented By: Admin: 07/09/24 22:23 Dose: 200 mls/hr Documented By: Infusion: 07/09/24 13:03 Dose: Infused Documented By: Admin: 07/09/24 11:15 Dose: 200 mls/hr Documented By: ALEXSANDER Ioversol (Optiray 320 100ml) 94 ml IV ONCE ONE Stop: 07/09/24 03:28 Last Admin: 07/09/24 03:27 Dose: 94 ml Documented By: KRYSTINA Morphine Sulfate (Morphine Sulfate 2 Mg/Ml Carp) 2 mg IV NOW STA Stop: 07/09/24 08:05 Last Admin: 07/09/24 08:18 Dose: 2 mg Documented By: ALEXSANDER Imaging Data Radiologist's Impression: Abdomen/Pelvis CT 07/08/24 23:40 Exam(s): CT ABDOMEN + PELVIS With Contrast IV Amt: 94 cc's optiray 320 EXAM: CT Abdomen and Pelvis With Intravenous Contrast CLINICAL HISTORY: Reason for exam: wound dehiscence, abscess midline. TECHNIQUE: Axial computed tomography images of the abdomen and pelvis with intravenous contrast. CTDI is 22.5 mGy and DLP is 1390.21 mGy-cm. Automated exposure control was utilized for the study. A dose lowering technique was utilized adhering to the principles of ALARA. CONTRAST: Patient received 94 cc's optiray 320 of IV contrast COMPARISON: 05/05/2024. FINDINGS: Lung bases: There are trace bilateral pleural effusions. There are bibasilar areas of atelectasis and/or consolidation. There is a small pericardial effusion. ABDOMEN: Liver: There are rounded lucencies within the liver, the largest which measures 13 mm in size. Gallbladder and bile ducts: The patient is status post cholecystectomy. A biliary stent is noted. Pancreas: No mass. No ductal dilation. Spleen: No splenomegaly. Adrenals: No mass. Kidneys and ureters: No solid mass. No hydronephrosis. Stomach and bowel: There is air and fluid noted within the stomach. There is air and stool noted in the colon. There are some mildly dilated loops of small bowel containing air and fluid. The overall bowel gas pattern may represent an ileus.. PELVIS: Appendix: No findings to suggest acute appendicitis. Bladder: No calculi are noted within the bladder.. Reproductive: The prostate gland is enlarged.. ABDOMEN and PELVIS: Intraperitoneal space: No free air. A percutaneous drainage catheter is noted with its tip in the region of the hepatic hilum. A second percutaneous drainage catheter is noted with its tip in the left upper quadrant Bones/joints: There are some degenerative changes in the spine. Soft tissues: There is a soft tissue wound noted in the anterior abdominal wall with subcutaneous emphysema. There are inflammatory changes noted. There is a 1.6 x 1.3 x 5.5 cm fluid collection. There is some high-density material noted in the region the umbilicus. Vasculature: No abdominal aortic aneurysm. Lymph nodes: No enlarged lymph nodes. IMPRESSION: There is a soft tissue wound noted in the anterior abdominal wall with subcutaneous emphysema. There are inflammatory changes noted. There is a 1.6 x 1.3 x 5.5 cm fluid collection. This may represent an abscess or seroma. There is some high-density material noted in the region the umbilicus. This may represent contrast. There are trace bilateral pleural effusions with bibasilar areas of atelectasis and/or consolidation. Rounded lucencies within the liver may represent cysts. See discussion above Electronically signed by: Cole Lew MD 07/09/24 04:11 AM Discharge Plan Visit Data Chief Complaint: Wound Dehiscence Stated Complaint: STICHES OPENED BACK UP/PUSS COMING OUT/ABD ED Provider: Michelle Marshall Discharge Problem: Abdominal wound dehiscence, Sepsis Patient Disposition: Admitted As Inpatient Discharge Instructions Interventions: ED Discharge Assessment Last Done: 07/09/24 13:52
[2024-07-09] MEDS: SODIUM CHLORIDE 0.9% 1,000 ML IV SCH ×2 (00:50→10:05)
[2024-07-09] MEDS: VANCOMYCIN HCL 1,250 MG in SODIUM CHLORIDE 0.9% 500 ML IV ONE (00:51)
[2024-07-09] MEDS: PIPERACILLIN/TAZOBACTAM 4.5 GM/100 ML BAG IV ONE (00:55)
[2024-07-09 01:18] LABS: Basophils # (auto) 0.07 K/uL (0.00-0.20); Basophils % (auto) 0.4 %; Eosinophils % (auto) 1.6 %; Hematocrit (blood only) 31.8 % (42.0-52.0); Hemoglobin 10.1 g/dl (14.0-18.0); Immature Granulocytes # (auto) 0.09 K/uL (0.01-0.20); Immature Granulocytes % (auto) 0.5 %; Lymphocytes # (auto) 2.86 K/uL (1.20-3.40); Lymphocytes % (auto) 15.2 %; Mean Corpuscular Hemoglobin 26.6 pg (25.0-34.0); Mean Corpuscular Hgb Conc 31.8 g/dL (32.0-36.0); Mean Corpuscular Volume 83.9 fL (80.0-100.0); Mean Platelet Volume 9.5 fL (9.4-12.4); Monocytes # (auto) 1.68 K/uL (0.11-0.59); Monocytes % (auto) 8.9 %; Neutrophils # (auto) 13.86 K/uL (1.40-6.50); Neutrophils % (auto) 73.4 %; Platelet Count 515 K/uL (130-400); RDW Coefficient of Variation 15.7 % (11.5-14.5); RDW Standard Deviation 47.6 fL (36.4-46.3); Red Blood Count 3.79 M/uL (4.70-6.10); White Blood Count 18.86 K/ul (4.8-10.8)
[2024-07-09 02:22] LABS: Albumin Globulin Ratio 0.7 (0.9-2); Albumin Level 3.4 gm/dl (3.4-5.0); BUN Creatinine Ratio 30.1 (10-20); Bilirubin,Total 0.7 mg/dl (0.2-1.0); Calcium 8.9 mg/dl (8.6-10.3); Creatinine Clr Calc Pharmacy 102.3 ml/min; Est GFR (African American) 117.7 ml/min; Est GFR (Non-African American) 101.5 ml/min; Globulin 4.9 gm/dl (2.5-4.0); Magnesium 1.7 mg/dl (1.7-2.4); Potassium 3.3 mmol/L (3.5-5.1); Total Protein 8.3 gm/dl (6.0-8.3)
[2024-07-09 02:29] LABS: Troponin I High Sensitivity 15.5 pg/ml (0-20)
[2024-07-09 02:41] LABS: INR 1.1 (0.9-1.1); Prothrombin Time 12.3 Seconds (9.0-12.0)
[2024-07-09] MEDS: SODIUM CHLORIDE 0.9% 1,000 ML IV ONE ×2 (02:47→05:39)
[2024-07-09] MEDS: OPTIRAY 320 100ml IV ONE (03:27)
[2024-07-09] MEDS: ACETAMINOPHEN 1,000 MG/100 ML VIAL IV STA (03:43)
--- NOTE | 2024-07-09 04:12 | CT Scan Report ---
Exam(s): CT ABDOMEN + PELVIS With Contrast IV Amt: 94 cc's optiray 320 EXAM: CT Abdomen and Pelvis With Intravenous Contrast CLINICAL HISTORY: Reason for exam: wound dehiscence, abscess midline. TECHNIQUE: Axial computed tomography images of the abdomen and pelvis with intravenous contrast. CTDI is 22.5 mGy and DLP is 1390.21 mGy-cm. Automated exposure control was utilized for the study. A dose lowering technique was utilized adhering to the principles of ALARA. CONTRAST: Patient received 94 cc's optiray 320 of IV contrast COMPARISON: 05/05/2024. FINDINGS: Lung bases: There are trace bilateral pleural effusions. There are bibasilar areas of atelectasis and/or consolidation. There is a small pericardial effusion. ABDOMEN: Liver: There are rounded lucencies within the liver, the largest which measures 13 mm in size. Gallbladder and bile ducts: The patient is status post cholecystectomy. A biliary stent is noted. Pancreas: No mass. No ductal dilation. Spleen: No splenomegaly. Adrenals: No mass. Kidneys and ureters: No solid mass. No hydronephrosis. Stomach and bowel: There is air and fluid noted within the stomach. There is air and stool noted in the colon. There are some mildly dilated loops of small bowel containing air and fluid. The overall bowel gas pattern may represent an ileus.. PELVIS: Appendix: No findings to suggest acute appendicitis. Bladder: No calculi are noted within the bladder.. Reproductive: The prostate gland is enlarged.. ABDOMEN and PELVIS: Intraperitoneal space: No free air. A percutaneous drainage catheter is noted with its tip in the region of the hepatic hilum. A second percutaneous drainage catheter is noted with its tip in the left upper quadrant Bones/joints: There are some degenerative changes in the spine. Soft tissues: There is a soft tissue wound noted in the anterior abdominal wall with subcutaneous emphysema. There are inflammatory changes noted. There is a 1.6 x 1.3 x 5.5 cm fluid collection. There is some high-density material noted in the region the umbilicus. Vasculature: No abdominal aortic aneurysm. Lymph nodes: No enlarged lymph nodes. IMPRESSION: There is a soft tissue wound noted in the anterior abdominal wall with subcutaneous emphysema. There are inflammatory changes noted. There is a 1.6 x 1.3 x 5.5 cm fluid collection. This may represent an abscess or seroma. There is some high-density material noted in the region the umbilicus. This may represent contrast. There are trace bilateral pleural effusions with bibasilar areas of atelectasis and/or consolidation. Rounded lucencies within the liver may represent cysts. See discussion above Electronically signed by: Cole Lew MD 07/09/24 04:11 AM
--- NOTE | 2024-07-09 07:47 | History & Physical Report ---
Date of Service July 09, 2024 Assessment & Plan (1) Abdominal wound dehiscence: Plan: 59-year-old male from [facility] who recently had complicated hospital course for acute cholangitis comes because of abdominal wound dehiscence and found to have abscess. Patient presented to [facility] with abdominal pain and jaundice and found to have choledocholithiasis and acute cholangitis and transferred to [facility] on 05/06/2024. As per d/c summary from [facility]:"Underwent ERCP with sphincterectomy and balloon sphincteroplasty on 05/07 and noted to have single stone within the duct. Underwent laparoscopic cholecystectomy on 05/08. On overnight 05/12 to 05/13 he had episodes of hematemesis and noted to have increasing abdominal distention and NGT was placed with dark bloody output and lactic acid greater than 9 and CTA without acute extravasation however demonstrated large gastric distention with a blood concerning for sphincterotomy bleed versus upper GI bleed and moderate right RP hemorrhage. He was transfused 3 units of PRBCs and transferred to ICU. On 05/13 he was intubated for airway protection. ERCP done on 05/14 showed retained CBD stone and bleeding at the site of the prior sphincterectomy and a possible small contained perforation. The initial stent was noted to be in major papilla and was removed and fully covered metal stent was placed in the CBD. HIDA was negative. Hemoglobin has been stable but required pressors. . Off pressors from 05/16. ID added meropenem. The patient was having persistent elevated WBC. C. difficile was negative. CT abdominal and pelvis showed intra-abdominal collections. Return to the OR for increasing pressor requirements and worsening exam and found to have duodenal perforation and purulent intra-abdominal fluid was washed out and ABThera placed. Again return to the OR on 05/21 at which time he underwent pyloric exclusion and gastrojejunal anastomosis and 3 drains were left in place at the time. On 05/[address] abdominal pelvis demonstrated large volume ascites within the subdiaphragmatic space with mass effect of the hepatic dome and stomach. On 05/29 Zosyn and Diflucan per ID recommendations and had IR aspiration of 460 mL of pleural purulent fluid. Patient was extubated and off of pressors. On 05/30 NG tube was DC'd and diet was advanced to clear liquid diet and antifungal changed from Diflucan to micafungin per ID recommendations as cultures grew MEYEROZYMA SARAHI. 06/02 follow-up CT abdomen pelvis showed no evidence of leak at the gastrojejunostomy and decreased size of the largest collection in the left subdiaphragmatic region. Midline incision draining purulent bilious drainage at the umbilicus and a small fascial dehiscence palpated below it packed with small piece 4 and 4. On 06/04 abscess was too small to drain by IR drain so was continue with antibiotic treatment. Final ID recommendations was to continue IV micafungin and and Zosyn for 4 weeks. 06/05 PICC line placed for long-term vascular access for TPN antibiotics. On 06/06/2024 patient was di scharged to [facility]." Seems he was [facility] and discharged back to [facility]. Completed antibiotics on June 21. Was placed on Lovenox until July 06, 2024. Patient states he is having on and off abdominal pain since discharge. Last night upper part of the incision opened up and was draining and was sent here. CT scan showing 1.6X 5.5 cm fluid collection in the anterior abdominal wall with subcutaneous emphysema. ER talked to surgery and was okay to keep the patient here and will be evaluated. IV Vanco and Zosyn given in the ER. Patient has no fevers. Patient staes appetite just came back yesterday. Denies any headache. No runny nose or sore throat. No difficulty swallowing. Denies chest pain or shortness of breath. No nausea. Normal bowel and blood movements. Blood pressure somewhat soft in the ER. Has leukocytosis. Lactic acid is okay. Patient followed up with surgery on June 20 and plan was to repeat CT scan in 1 week and follow-up in clinic same week and recommended to continue local wound and drain care. Patient's seem to had CT scan on July 03 but not followed up with surgery yet. Abdominal wound dehiscence Recent choledocholithiasis and acute cholangitis and complicated hospital course as mentioned above Comes with incisional wound dehiscence in the upper part of incision. CT scan showing 1.6 x 1.3x 5.5 central fluid collection in the anterior abdominal wall with subcutaneous emphysema. ER spoke with surgery and was okay to keep the patient here and will be evaluated by surgery On IV Vanco and Zosyn IV fluids IV Tylenol as needed Abscess was somewhat drained in the ER and culture sent Will follow the cultures Will monitor hemodynamics Patient still with drains from the recent surgeries done well Removal of those drains as per surgery Also seems to have small opening at umbilical site- await surgery inputs Close monitor Will also consult ID GERD On omeprazole DVT prophylaxis SCDs for now Disposition Telemetry History of Present Illness Chief Complaint: Abdominal wound dehiscence and abscess Primary Care Provider: GERMANIA kimberly 59-year-old male from [place] who recently had complicated hospital course for acute cholangitis comes because of abdominal wound dehiscence and found to have abscess. Patient presented to [facility] with abdominal pain and jaundice and found to have choledocholithiasis and acute cholangitis and transferred to [facility] on 05/06/2024. As per d/c summary from [facility]:"Underwent ERCP with sphincterectomy and balloon sphincteroplasty on 05/07 and noted to have single stone within the duct. Underwent laparoscopic cholecystectomy on 05/08. On overnight 05/12 to 05/13 he had episodes of hematemesis and noted to have increasing abdominal distention and NGT was placed with dark bloody output and lactic acid greater than 9 and CTA without acute extravasation however demonstrated large gastric distention with a blood concerning for sphincterotomy bleed versus upper GI bleed and moderate right RP hemorrhage. He was transfused 3 units of PRBCs and transferred to ICU. On 05/13 he was intubated for airway protection. ERCP done on 05/14 showed retained CBD stone and bleeding at the site of the prior sphincterectomy and a possible small contained perforation. The initial stent was noted to be in major papilla and was removed and fully covered metal stent was placed in the CBD. HIDA was negative. Hemoglobin has been stable but required pressors. . Off pressors from 05/16. ID added meropenem. The patient was having persistent elevated WBC. C. difficile was negative. CT abdominal and pelvis showed intra-abdominal collections. Return to the OR for increasing pressor requirements and worsening exam and found to have duodenal perforation and purulent intra-abdominal fluid was washed out and ABThera placed. Again return to the OR on 05/21 at which time he underwent pyloric exclusion and gastrojejunal anastomosis and 3 drains were left in place at the time. On 05/[address] abdominal pelvis demonstrated large volume ascites within the subdiaphragmatic space with mass effect of the hepatic dome and stomach. On 05/29 Zosyn and Diflucan per ID recommendations and had IR aspiration of 460 mL of pleural purulent fluid. Patient was extubated and off of pressors. On 05/30 NG tube was DC'd and diet was advanced to clear liquid diet and antifungal changed from Diflucan to micafungin per ID recommendations as cultures grew MADELINEYMA SARAHI. 06/02 follow-up CT abdomen pelvis showed no evidence of leak at the gastrojejunostomy and decreased size of the largest collection in the left subdiaphragmatic region. Midline incision draining purulent bilious drainage at the umbilicus and a small fascial dehiscence palpated below it packed with small piece 4 and 4. On 06/04 abscess was too small to drain by IR drain so was continue with antibiotic treatment. Final ID recommendations was to continue IV micafungin and and Zosyn for 4 weeks. 06/05 PICC line placed for long-term vascular access for TPN antibiotics. On 06/06/2024 patient was discharged to [facility]." Seems he was in [facility] for 1 week and discharged back to snf. Completed antibiotics on June 21. Was placed on Lovenox until July 06, 2024. Patient states he is having on and off abdominal pain since discharge. Last night upper part of the incision opened up and was draining and was sent here. CT scan showing 1.6X 5.5 cm fluid collection in the anterior abdominal wall with subcutaneous emphysema. ER talked to surgery and was okay to keep the patient here and will be evaluated. IV Vanco and Zosyn given in the ER. Patient has no fevers. Patient staes appetite just came back yesterday. Denies any headache. No runny nose or sore throat. No difficulty swallowing. Denies chest pain or shortness of breath. No nausea. Normal bowel and blood movements. Blood pressure somewhat soft in the ER. Has leukocytosis. Lactic acid is okay. Patient followed up with surgery on June 20 and plan was to repeat CT scan in 1 week and follow-up in clinic same week and recommended to continue local wound and drain care. Patient's seem to had CT scan on July 03 but not followed up with surgery yet. Past medical history. Electrolyte abnormalities. Acute hypoxic respiratory failure. Postoperative ileus. Duodenal perforation. Moderate malnutrition. Choledocholithiasis. Acute cholangitis. Gastrointestinal hemorrhage with hematemesis. Duodenal ulcer. CHARAN. Hydroureter on right. Peritonitis due to bile. Acute blood loss anemia. Septic shock. Hemorrhagic shock. Elevated LFTs. Past surgical history. EGD. EGD with endoscopic ultrasound. ERCP. Exploration of abdomen. Exploratory laparotomy. IR aspiration of abscess. Diagnostic laparoscopy. Laparoscopic cholecystectomy with cholangiogram. Small bowel resection. Social history. No substance use on file. Family history no family history on file Allergies Allergy/AdvReac Type Severity Reaction Status Date / Time No Known Allergies Allergy Verified 07/09/24 00:20 Home Medications Medication Instructions Recorded Confirmed Type acetaminophen 500 mg tablet 1,000 mg PO TID PRN Pain 07/09/24 07/09/24 History (Tylenol Extra Strength) cefazolin 1 gram/50 mL in dextrose 50 ml IV Q6H 07/09/24 07/09/24 History (iso-osmotic) intravenous piggyback cyanocobalamin (vitamin B-12) 1,000 mcg IM WK 07/09/24 07/09/24 History 1,000 mcg/mL injection solution docusate sodium 100 mg capsule 100 mg PO BID PRN Constipation 07/09/24 07/09/24 History enoxaparin 40 mg/0.4 mL 40 mg subcut DAILY 07/09/24 07/09/24 History subcutaneous syringe (Lovenox) magnesium hydroxide 400 mg/5 mL 15 ml PO DAILY PRN Constipation 07/09/24 07/09/24 History oral suspension (Milk of Magnesia) nortriptyline 50 mg capsule 50 mg PO HS 07/09/24 07/09/24 History omeprazole 20 mg capsule,delayed 20 mg PO DAILY 07/09/24 07/09/24 History release polyethylene glycol 3350 17 17 g PO DAILY PRN Constipation 07/09/24 07/09/24 History gram/dose oral powder (Miralax) sennosides 15 mg tablet (Laxative 15 mg PO DAILY 07/09/24 07/09/24 History (sennosides)) Past Med/Surg History Problem List (Updated 07/09/24 @ 06:07 by Michelle Marshall DO) Sepsis (Acute) Abdominal wound dehiscence (Acute) Social History Smoking Status: Unknown if ever smoked Preferred Language: Kosovan Feels Safe at Home: Yes Review of Systems Review of Systems: All systems reviewed & are unremarkable except as noted in HPI & below Physical Exam Physical Exam: General- adult Head- atraumatic Eyes- PERRL. ENT- oropharynx clear Neck- supple, no JVD. Lungs- clear to auscultation no wheezing or crackles. Heart- regular rhythm; no murmur, no gallop. Abdomen- normal bowel sounds, soft, drains seen. Opening with mild drainage seen on upper part of recent incision, small opening seen at umbilical region Extremities- no pretibial edema, no erythema seen Neuro- alert, oriented PERRL, no facial palsy; no dysarthria; moves extremities Results & Data Results & Data Vital Signs (Past 12 Hours) Vital Signs Temp Pulse Pulse Resp BP BP Pulse Ox 07/09/24 05:00 88 21 91/61 L 95 07/09/24 03:45 94 H 07/09/24 03:00 94 H 27 H 104/72 94 07/09/24 01:00 105 H 25 H 140/82 95 07/08/24 23:53 114 H 07/08/24 23:45 37.1 C 113 H 15 116/77 94 07/08/24 23:13 36.7 C 132 H 113/69 95 O2 Del Method 07/09/24 05:00 Room Air 07/09/24 03:45 07/09/24 03:00 Room Air 07/09/24 01:00 Room Air 07/08/24 23:53 07/08/24 23:45 Room Air 07/08/24 23:13 Room Air Diagnostic Findings Laboratory Results WBC 18.86 K/ul (4.8-10.8) H 07/09/24 01:01 RBC 3.79 M/uL (4.70-6.10) L 07/09/24 01:01 Hgb 10.1 g/dl (14.0-18.0) L 07/09/24 01:01 Hct 31.8 % (42.0-52.0) L 07/09/24 01:01 MCV 83.9 fL (80.0-100.0) 07/09/24 01:01 MCH 26.6 pg (25.0-34.0) 07/09/24 01:01 MCHC 31.8 g/dL (32.0-36.0) L 07/09/24 01:01 RDW Std Deviation 47.6 fL (36.4-46.3) H 07/09/24 01:01 RDW Coeff of [place] 15.7 % (11.5-14.5) H 07/09/24 01:01 Plt Count 515 K/uL (130-400) H 07/09/24 01:01 MPV 9.5 fL (9.4-12.4) 07/09/24 01:01 Immature Gran % (Auto) 0.5 % 07/09/24 01:01 Neut % (Auto) 73.4 % 07/09/24 01:01 Lymph % (Auto) 15.2 % 07/09/24 01:01 Wilkin % (Auto) 8.9 % 07/09/24 01:01 Eos % (Auto) 1.6 % 07/09/24 01:01 Baso % (Auto) 0.4 % 07/09/24 01:01 Neut # (Auto) 13.86 K/uL (1.40-6.50) H 07/09/24 01:01 Lymph # (Auto) 2.86 K/uL (1.20-3.40) 07/09/24 01:01 Wilkin # (Auto) 1.68 K/uL (0.11-0.59) H 07/09/24 01:01 Eos # (Auto) 0.30 K/uL (0.00-0.50) 07/09/24 01:01 Baso # (Auto) 0.07 K/uL (0.00-0.20) 07/09/24 01:01 Immature Gran # (Auto) 0.09 K/uL (0.01-0.20) 07/09/24 01:01 PT 12.3 Seconds (9.0-12.0) H 07/09/24 01:46 INR 1.1 (0.9-1.1) 07/09/24 01:46 Sodium 133 mmol/L (136-145) L 07/09/24 01:46 Potassium 3.3 mmol/L (3.5-5.1) L 07/09/24 01:46 Chloride 96 mmol/L (98-107) L 07/09/24 01:46 Carbon Dioxide 28 mmol/L (21-32) 07/09/24 01:46 Anion Gap 9 (3-11) 07/09/24 01:46 BUN 22 mg/dl (6-23) 07/09/24 01:46 Creatinine 0.73 mg/dl (0.6-1.4) 07/09/24 01:46 Est Cr Clr Drug Dosing 102.3 ml/min 07/09/24 01:46 Est GFR ( Amer) 117.7 ml/min 07/09/24 01:46 Est GFR (Non-Af Amer) 101.5 ml/min 07/09/24 01:46 BUN/Creatinine Ratio 30.1 (10-20) H 07/09/24 01:46 Glucose 126 mg/dl (70-99(Fasting)) H 07/09/24 01:46 Lactate 0.9 mmol/L (0.4-2.0) 07/09/24 06:57 Calcium 8.9 mg/dl (8.6-10.3) 07/09/24 01:46 Magnesium 1.7 mg/dl (1.7-2.4) 07/09/24 01:46 Total Bilirubin 0.7 mg/dl (0.2-1.0) 07/09/24 01:46 AST 22 U/L (13-39) 07/09/24 01:46 ALT 13 U/L (7-52) 07/09/24 01:46 Alkaline Phosphatase 123 U/L (34-104) H 07/09/24 01:46 Troponin I High Sens 15.5 pg/ml (0-20) 07/09/24 01:46 Total Protein 8.3 gm/dl (6.0-8.3) 07/09/24 01:46 Albumin 3.4 gm/dl (3.4-5.0) 07/09/24 01:46 Globulin 4.9 gm/dl (2.5-4.0) H 07/09/24 01:46 Albumin/Globulin Ratio 0.7 (0.9-2) L 07/09/24 01:46 Lipase 167 U/L (11-82) H 07/09/24 01:46 Procalcitonin 0.13 ng/ml (0-0.5) 07/09/24 01:46 Impressions Abdomen/Pelvis CT 07/08/24 23:40 Exam(s): CT ABDOMEN + PELVIS With Contrast IV Amt: 94 cc's optiray 320 EXAM: CT Abdomen and Pelvis With Intravenous Contrast CLINICAL HISTORY: Reason for exam: wound dehiscence, abscess midline. TECHNIQUE: Axial computed tomography images of the abdomen and pelvis with intravenous contrast. CTDI is 22.5 mGy and DLP is 1390.21 mGy-cm. Automated exposure control was utilized for the study. A dose lowering technique was utilized adhering to the principles of ALARA. CONTRAST: Patient received 94 cc's optiray 320 of IV contrast COMPARISON: 05/05/2024. FINDINGS: Lung bases: There are trace bilateral pleural effusions. There are bibasilar areas of atelectasis and/or consolidation. There is a small pericardial effusion. ABDOMEN: Liver: There are rounded lucencies within the liver, the largest which measures 13 mm in size. Gallbladder and bile ducts: The patient is status post cholecystectomy. A biliary stent is noted. Pancreas: No mass. No ductal dilation. Spleen: No splenomegaly. Adrenals: No mass. Kidneys and ureters: No solid mass. No hydronephrosis. Stomach and bowel: There is air and fluid noted within the stomach. There is air and stool noted in the colon. There are some mildly dilated loops of small bowel containing air and fluid. The overall bowel gas pattern may represent an ileus.. PELVIS: Appendix: No findings to suggest acute appendicitis. Bladder: No calculi are noted within the bladder.. Reproductive: The prostate gland is enlarged.. ABDOMEN and PELVIS: Intraperitoneal space: No free air. A percutaneous drainage catheter is noted with its tip in the region of the hepatic hilum. A second percutaneous drainage catheter is noted with its tip in the left upper quadrant Bones/joints: There are some degenerative changes in the spine. Soft tissues: There is a soft tissue wound noted in the anterior abdominal wall with subcutaneous emphysema. There are inflammatory changes noted. There is a 1.6 x 1.3 x 5.5 cm fluid collection. There is some high-density material noted in the region the umbilicus. Vasculature: No abdominal aortic aneurysm. Lymph nodes: No enlarged lymph nodes. IMPRESSION: There is a soft tissue wound noted in the anterior abdominal wall with subcutaneous emphysema. There are inflammatory changes noted. There is a 1.6 x 1.3 x 5.5 cm fluid collection. This may represent an abscess or seroma. There is some high-density material noted in the region the umbilicus. This may represent contrast. There are trace bilateral pleural effusions with bibasilar areas of atelectasis and/or consolidation. Rounded lucencies within the liver may represent cysts. See discussion above Electronically signed by: Cole Lew MD 07/09/24 04:11 AM ECG Additional Comments: ECG. Normal sinus rhythm rate of 97. No acute ST changes seen. QTc 452. Code Status & VTE Plan VTE Prophylaxis Plan VTE Prophylaxis will be ordered: Yes
[2024-07-09] MEDS: PIPERACILLIN/TAZOBACTAM 4.5 GM/100 ML BAG IV SCH (07:49)
[2024-07-09] MEDS: MoRPHine SULFATE 2 MG/ML CARP IV STA (08:18)
[2024-07-09] MEDS ORDERED: POLYETHYLENE (MIRALAX) 17 GM PACK PO PRN (09:11)
[2024-07-09] MEDS ORDERED: NITROGLYCERIN SL 0.4 MG/TAB TAB SL PRN (09:11)
--- NOTE | 2024-07-09 09:56 | Pharmacy Report ---
Pharmacy PK ABX Note - Date of Service July 09, 2024 - Assessment and Plan Assessment * 59 year old M receiving pip/tazo and vancomycin for treatment of intraabdominal abscess w wound dehiscence * PMH: very complex recent intraabdominal history indlucing lap lanie in May with prolonged complicated hospital course. Followed by ID and recommended x4 weeks of micafungin and pip/tazo, ending 06/21 * Pertinent microbiologic data includes: abdominal and blood culture pending Plan Vancomycin * Loading dose: 1250 mg IV x 1 * Maintenance dose: 1250 mg IV every 12 hours * Regimen is predicted to achieve target AUC/JUDD of 400-600 mg/L.hr * Random level ordered for tomorrow AM Pharmacy will continue to follow and will adjust dose/frequency as necessary. Thank you. Pharmacy has transitioned to AUC monitoring for vancomycin. AUC/JUDD is the preferred PK/PD target and is associated with decreased risk of nephrotoxicity compared to traditional trough targets.
[2024-07-09] MEDS: PANTOprazole 40 MG TAB PO SCH (10:04)
[2024-07-09] MEDS: SODIUM CHLORIDE 0.9% 500 ML IV SCH (10:05)
[2024-07-09] MEDS: VANCOMYCIN HCL 1,250 MG in SODIUM CHLORIDE 0.9% 250 ML IV SCH (11:15)
--- NOTE | 2024-07-09 12:07 | Surgery Consultation ---
Date of Consultation July 09, 2024 Assessment & Plan (1) Abdominal wound dehiscence: (2) Sepsis: Plan 59-year-old man presents after extensive surgical/gastrointestinal history as detailed above. He has a superficial dehiscence of his midline wound with thick brownish purulent fluid. Is unclear whether this represents a superficial abscess versus a fistula or true dehiscence. No bowel is noted in the incision. He is on IV antibiotics and I will continue this. N.p.o. for now. He will require a repeat CT scan with oral and IV contrast to determine whether there is a fistulous tract. If he has any issue more complicated than a superficial wound infection, he will need to be transferred back to [facility] given the severity of his condition. We will continue to follow. History of Present Illness Reason for Consultation: Wound dehiscence/abscess Requesting Physician: Lev Alejandro MD Attending Physician: Lev Alejandro MD History of Present Illness 59-year-[facility] who recently had complicated hospital course for acute cholangitis comes because of abdominal wound dehiscence and found to have abscess. Patient presented to [facility] with abdominal pain and jaundice and found to have choledocholithiasis and acute cholangitis and transferred to [facility] on 05/06/2024. As per d/c summary from [facility]:"Underwent ERCP with sphincterectomy and balloon sphincteroplasty on 05/07 and noted to have single stone within the duct. Underwent laparoscopic cholecystectomy on 05/08. On overnight 05/12 to 05/13 he had episodes of hematemesis and noted to have increasing abdominal distention and NGT was placed with dark bloody output and lactic acid greater than 9 and CTA without acute extravasation however demonstrated large gastric distention with a blood concerning for sphincterotomy bleed versus upper GI bleed and moderate right RP hemorrhage. He was transfused 3 units of PRBCs and transferred to ICU. On 05/13 he was intubated for airway protection. ERCP done on 05/14 showed retained CBD stone and bleeding at the site of the prior sphincterectomy and a possible small contained perforation. The initial stent was noted to be in major papilla and was removed and fully covered metal stent was placed in the CBD. HIDA was negative. Hemoglobin has been stable but required pressors. . Off pressors from 05/16. ID added meropenem. The patient was having persistent elevated WBC. C. difficile was negative. CT abdominal and pelvis showed intra-abdominal collections. Return to the OR for increasing pressor requirements and worsening exam and found to have duodenal perforation and purulent intra-abdominal fluid was washed out and ABThera placed. Again return to the OR on 05/21 at which time he underwent pyloric exclusion and gastrojejunal anastomosis and 3 drains were left in place at the time. On 05/[address] abdominal pelvis demonstrated large volume ascites within the subdiaphragmatic space with mass effect of the hepatic dome and stomach. On 05/29 Zosyn and Diflucan per ID recommendations and had IR aspiration of 460 mL of pleural purulent fluid. Patient was extubated and off of pressors. On 05/30 NG tube was DC'd and diet was advanced to clear liquid diet and antifungal changed from Diflucan to micafungin per ID recommendations as cultures grew MEYEROZYMA GUILVANDANAI. 06/02 follow-up CT abdomen pelvis showed no evidence of leak at the gastrojejunostomy and decreased size of the largest collection in the left subdiaphragmatic region. Midline incision draining purulent bilious drainage at the umbilicus and a small fascial dehiscence palpated below it packed with small piece 4 and 4. On 06/04 abscess was too small to drain by IR drain so was continue with antibiotic treatment. Final ID recommendations was to continue IV micafungin and and Zosyn for 4 weeks. 06/05 PICC line placed for long-term vascular access for TPN antibiotics. On 06/06/2024 patient was discharged to [facility]." Seems he was in [facility] for 1 week and [facility] back [facility] jail. Completed antibiotics on June 21. Was placed on Lovenox until July 06, 2024. Patient states he is having on and off abdominal pain since discharge. Last night upper part of the incision opened up and was draining and was sent here. CT scan showing 1.6X 5.5 cm fluid collection in the anterior abdominal wall with subcutaneous emphysema. ER talked to surgery and was okay to keep the patient here and will be evaluated. IV Vanco and Zosyn given in the ER. Patient has no fevers. Patient staes appetite just came back yesterday. Denies any headache. No runny nose or sore throat. No difficulty swallowing. Denies chest pain or shortness of breath. No nausea. Normal bowel and blood movements. Blood pressure somewhat soft in the ER. Has leukocytosis. Lactic acid is okay. Patient followed up with surgery on June 20 and plan was to repeat CT scan in 1 week and follow-up in clinic same week and recommended to continue local wound and drain care. Patient's seem to had CT scan on July 03 but not followed up with surgery yet. had his [facility]. After this, he noted pain and significant drainage from his midline abdominal wound. He was brought to the hospital. CT scan demonstrates what appears to be a subcutaneous abscess. There is no oral contrast on the scan. Allergies Allergy/AdvReac Type Severity Reaction Status Date / Time No Known Allergies Allergy Verified 07/09/24 00:20 Home Medications Medication Instructions Recorded Confirmed Type acetaminophen 500 mg tablet 1,000 mg PO TID PRN Pain 07/09/24 07/09/24 History (Tylenol Extra Strength) cefazolin 1 gram/50 mL in dextrose 50 ml IV Q6H 07/09/24 07/09/24 History (iso-osmotic) intravenous piggyback cyanocobalamin (vitamin B-12) 1,000 mcg IM WK 07/09/24 07/09/24 History 1,000 mcg/mL injection solution docusate sodium 100 mg capsule 100 mg PO BID PRN Constipation 07/09/24 07/09/24 History enoxaparin 40 mg/0.4 mL 40 mg subcut DAILY 07/09/24 07/09/24 History subcutaneous syringe (Lovenox) magnesium hydroxide 400 mg/5 mL 15 ml PO DAILY PRN Constipation 07/09/24 07/09/24 History oral suspension (Milk of Magnesia) nortriptyline 50 mg capsule 50 mg PO HS 07/09/24 07/09/24 History omeprazole 20 mg capsule,delayed 20 mg PO DAILY 07/09/24 07/09/24 History release polyethylene glycol 3350 17 17 g PO DAILY PRN Constipation 07/09/24 07/09/24 History gram/dose oral powder (Miralax) sennosides 15 mg tablet (Laxative 15 mg PO DAILY 07/09/24 07/09/24 History (sennosides)) Patient History Social History Smoking Status: Unknown if ever smoked Preferred Language: Armenian Feels Safe at Home: Yes Review of Systems Review of Systems: All systems reviewed & are unremarkable except as noted in HPI & below Physical Exam Constitutional: WD/WN, vitals as above Eyes: PERRL, conjunctivae normal, anicteric sclerae Neck: trachea midline, no thyromegaly Respiratory: normal respiratory effort; no respiratory distress and no labored breathing Cardiovascular: Rate/Rhythm: regular rate and regular rhythm Gastrointestinal (Abdomen): Inspection/Auscultation: abdomen normal to inspection; abdomen not distended Percussion/Palpation: + abdomen tender and abdomen soft; no guarding and abdomen not rigid midline incision with 2 openings, 1 in apex of wound, wound at base of wound draining thick brownish fluid Skin: no rashes, warm and dry Psychiatric: A+Ox3, euthymic affect Results & Data Vital Signs (Past 12 Hours) Vital Signs Pulse Pulse Resp BP BP Pulse Ox O2 Del Method 07/09/24 10:00 95 H 24 96 07/09/24 09:51 96 H 23 96 07/09/24 09:45 98 H 25 H 96 07/09/24 09:45 114/79 07/09/24 09:45 114/79 07/09/24 09:36 95 H 23 95 07/09/24 09:21 96 H 24 95 07/09/24 09:15 100/71 07/09/24 09:00 109/73 07/09/24 08:51 93 H 23 95 07/09/24 08:45 95 H 26 H 96 07/09/24 08:45 113/73 07/09/24 08:45 113/07/09/24 08:45 113/73 07/09/24 08:30 117/77 07/09/24 08:24 96 H 95 07/09/24 08:20 94 H 07/09/24 08:15 114/72 07/09/24 08:06 100 H 22 96 07/09/24 08:00 107/70 07/09/24 08:00 107/70 07/09/24 08:00 107/70 07/09/24 08:00 95 H 28 H 96 07/09/24 07:54 92 H 27 H 96 07/09/24 07:45 107/07/09/24 07:45 107/73 07/09/24 07:45 107/73 07/09/24 07:42 89 25 H 97 07/09/24 07:30 111/69 07/09/24 07:30 87 26 H 97 07/09/24 07:15 89 26 H 98 07/09/24 07:15 102/71 07/09/24 07:15 102/71 07/09/24 07:15 102/71 07/09/24 07:06 89 26 H 97 07/09/24 06:54 86 25 H 97 07/09/24 06:45 86 27 H 97 07/09/24 06:45 96/74 L 07/09/24 06:45 96/74 L 07/09/24 06:45 96/74 L 07/09/24 06:45 96/74 L 07/09/24 06:30 87 25 H 97 07/09/24 06:30 111/68 07/09/24 06:30 111/68 07/09/24 06:30 111/68 07/09/24 06:30 111/68 07/09/24 06:21 91 H 18 97 07/09/24 06:18 87 17 98 07/09/24 06:15 110/80 07/09/24 06:09 87 25 H 97 07/09/24 06:00 104/71 07/09/24 06:00 88 24 96 07/09/24 05:45 103/67 07/09/24 05:45 87 23 95 07/09/24 05:42 89 24 96 07/09/24 05:33 88 23 95 07/09/24 05:30 95/63 L 07/09/24 05:30 95/63 L 07/09/24 05:30 95/63 L 07/09/24 05:30 95/63 L 07/09/24 05:18 87 22 94 07/09/24 05:15 94/63 L 07/09/24 05:15 94/63 L 07/09/24 05:15 85 14 95 07/09/24 05:12 83 20 95 07/09/24 05:00 91/61 L 07/09/24 05:00 90 21 95 07/09/24 05:00 88 21 91/61 L 95 Room Air 07/09/24 04:51 91 H 21 95 07/09/24 04:45 110/67 07/09/24 04:45 110/67 07/09/24 03:45 94 H 07/09/24 03:00 94 H 27 H 104/72 94 Room Air 07/09/24 01:00 105 H 25 H 140/82 95 Room Air Laboratory Results 07/09/24 07/09/24 07/09/24 Range/Units 06:57 01:46 01:01 WBC 18.86 H (4.8-10.8) K/ul RBC 3.79 L (4.70-6.10) M/uL Hgb 10.1 L (14.0-18.0) g/dl Hct 31.8 L (42.0-52.0) % MCV 83.9 (80.0-100.0) fL MCH 26.6 (25.0-34.0) pg MCHC 31.8 L (32.0-36.0) g/dL RDW Std Deviation 47.6 H (36.4-46.3) fL RDW Coeff of [place] 15.7 H (11.5-14.5) % Plt Count 515 H (130-400) K/uL MPV 9.5 (9.4-12.4) fL Immature Gran % (Auto) 0.5 % Neut % (Auto) 73.4 % Lymph % (Auto) 15.2 % [place] % (Auto) 8.9 % Eos % (Auto) 1.6 % Baso % (Auto) 0.4 % Neut # (Auto) 13.86 H (1.40-6.50) K/uL Lymph # (Auto) 2.86 (1.20-3.40) K/uL [place] # (Auto) 1.68 H (0.11-0.59) K/uL Eos # (Auto) 0.30 (0.00-0.50) K/uL Baso # (Auto) 0.07 (0.00-0.20) K/uL Immature Gran # (Auto) 0.09 (0.01-0.20) K/uL PT 12.3 H (9.0-12.0) Seconds INR 1.1 (0.9-1.1) Sodium 133 L (136-145) mmol/L Potassium 3.3 L (3.5-5.1) mmol/L Chloride 96 L (98-107) mmol/L Carbon Dioxide 28 (21-32) mmol/L Anion Gap 9 (3-11) BUN 22 (6-23) mg/dl Creatinine 0.73 (0.6-1.4) mg/dl Est Cr Clr Drug Dosing 102.3 ml/min Est GFR ( Amer) 117.7 ml/min Est GFR (Non-Af Amer) 101.5 ml/min BUN/Creatinine Ratio 30.1 H (10-20) Glucose 126 H (70-99(Fasting)) mg/dl Lactate 0.9 (0.4-2.0) mmol/L Calcium 8.9 (8.6-10.3) mg/dl Magnesium 1.7 (1.7-2.4) mg/dl Total Bilirubin 0.7 (0.2-1.0) mg/dl AST 22 (13-39) U/L ALT 13 (7-52) U/L Alkaline Phosphatase 123 H (34-104) U/L Troponin I High Sens 15.5 (0-20) pg/ml Total Protein 8.3 (6.0-8.3) gm/dl Albumin 3.4 (3.4-5.0) gm/dl Globulin 4.9 H (2.5-4.0) gm/dl Albumin/Globulin Ratio 0.7 L (0.9-2) Lipase 167 H (11-82) U/L Procalcitonin 0.13 (0-0.5) ng/ml Diagnostic Findings Exam(s): CT ABDOMEN + PELVIS With Contrast IV Amt: 94 cc's optiray 320 EXAM: CT Abdomen and Pelvis With Intravenous Contrast CLINICAL HISTORY: Reason for exam: wound dehiscence, abscess midline. TECHNIQUE: Axial computed tomography images of the abdomen and pelvis with intravenous contrast. CTDI is 22.5 mGy and DLP is 1390.21 mGy-cm. Automated exposure control was utilized for the study. A dose lowering technique was utilized adhering to the principles of ALARA. CONTRAST: Patient received 94 cc's optiray 320 of IV contrast COMPARISON: 05/05/2024. FINDINGS: Lung bases: There are trace bilateral pleural effusions. There are bibasilar areas of atelectasis and/or consolidation. There is a small pericardial effusion. ABDOMEN: Liver: There are rounded lucencies within the liver, the largest which measures 13 mm in size. Gallbladder and bile ducts: The patient is status post cholecystectomy. A biliary stent is noted. Pancreas: No mass. No ductal dilation. Spleen: No splenomegaly. Adrenals: No mass. Kidneys and ureters: No solid mass. No hydronephrosis. Stomach and bowel: There is air and fluid noted within the stomach. There is air and stool noted in the colon. There are some mildly dilated loops of small bowel containing air and fluid. The overall bowel gas pattern may represent an ileus.. PELVIS: Appendix: No findings to suggest acute appendicitis. Bladder: No calculi are noted within the bladder.. Reproductive: The prostate gland is enlarged.. ABDOMEN and PELVIS: Intraperitoneal space: No free air. A percutaneous drainage catheter is noted with its tip in the region of the hepatic hilum. A second percutaneous drainage catheter is noted with its tip in the left upper quadrant Bones/joints: There are some degenerative changes in the spine. Soft tissues: There is a soft tissue wound noted in the anterior abdominal wall with subcutaneous emphysema. There are inflammatory changes noted. There is a 1.6 x 1.3 x 5.5 cm fluid collection. There is some high-density material noted in the region the umbilicus. Vasculature: No abdominal aortic aneurysm. Lymph nodes: No enlarged lymph nodes. IMPRESSION: There is a soft tissue wound noted in the anterior abdominal wall with subcutaneous emphysema. There are inflammatory changes noted. There is a 1.6 x 1.3 x 5.5 cm fluid collection. This may represent an abscess or seroma. There is some high-density material noted in the region the umbilicus. This may represent contrast. There are trace bilateral pleural effusions with bibasilar areas of atelectasis and/or consolidation. Rounded lucencies within the liver may represent cysts. See discussion above Electronically signed by: Cole Lew MD 07/09/24 04:11 AM
[2024-07-09] MEDS: ACETAMINOPHEN 1,000 MG/100 ML VIAL IV PRN (12:26)
--- NOTE | 2024-07-09 14:09 | Hospitalist Progress Note ---
Date of Service July 09, 2024 Assessment & Plan (1) Abdominal wound dehiscence: Plan: 59-[facility]-old male from [facility] who recently had complicated hospital course for acute cholangitis comes because of abdominal wound dehiscence and found to have abscess. Patient presented to [facility] with abdominal pain and jaundice and found to have choledocholithiasis and acute cholangitis and transferred to [facility] on 05/06/2024. As per d/c summary from [facility]:" Underwent ERCP with sphincterectomy and balloon sphincteroplasty on 05/07 and noted to have single stone within the duct. Underwent laparoscopic cholecystectomy on 05/08. On overnight 05/12 to 05/13 he had episodes of hematemesis and noted to have increasing abdominal distention and NGT was placed with dark bloody output and lactic acid greater than 9 and CTA without acute extravasation however d emonstrated large gastric distention with a blood concerning for sphincterotomy bleed versus upper GI bleed and moderate right RP hemorrhage. He was transfused 3 units of PRBCs and transferred to ICU. On 05/13 he was intubated for airway protection. ERCP done on 05/14 showed retained CBD stone and bleeding at the site of the prior sphincterectomy and a possible small contained perforation. The initial stent was noted to be in major papilla and was removed and fully covered metal stent was placed in the CBD. HIDA was negative. Hemoglobin has been stable but required pressors. . Off pressors from 05/16. ID added meropenem. The patient was having persistent elevated WBC. C. difficile was negative. CT abdominal and pelvis showed intra-abdominal collections. Return to the OR for increasing pressor requirements and worsening exam and found to have duodenal perforation and purulent intra-abdominal fluid was washed out and ABThera placed. Again return to the OR on 05/21 at which time he underwent pyloric exclusion and gastrojejunal anastomosis and 3 drains were left in place at the time. On 05/[address] abdominal pelvis demonstrated large volume ascites within the subdiaphragmatic space with mass effect of the hepatic dome and stomach. On 05/29 Zosyn and Diflucan per ID recommendations and had IR aspiration of 460 mL of pleural purulent fluid. Patient was extubated and off of pressors. On 05/30 NG tube was DC'd and diet was advanced to clear liquid diet and antifungal changed from Diflucan to micafungin per ID recommendations as cultures grew MADELINEYMA SARAHI. 06/02 follow-up CT abdomen pelvis showed no evidence of leak at the gastrojejunostomy and decreased size of the largest collection in the left subdiaphragmatic region. Midline incision draining purulent bilious drainage at the umbilicus and a small fascial dehiscence palpated below it packed with small piece 4 and 4. On 06/04 abscess was too small to drain by IR drain so was continue with antibiotic treatment. Final ID recommendations was to continue IV micafungin and and Zosyn for 4 weeks. 06/05 PICC line placed for long-term vascular access for TPN antibiotics. On 06/06/2024 patient was discharged to [facility]." Seems he was in [facility] for 1 week and [facility]. Completed antibiotics on June 21. Was placed on Lovenox until July 06, 2024. Patient states he is having on and off abdominal pain since discharge. Last night upper part of the incision opened up and was draining and was sent here. CT scan showing 1.6X 5.5 cm fluid collection in the anterior abdominal wall with subcutaneous emphysema. ER talked to surgery financial controller and was okay to keep the patient here and will be evaluated. IV Vanco and Zosyn given in the ER. Patient has no fevers. . Denies any headache. No runny nose or sore throat. No difficulty swallowing. Denies chest pain or shortness of breath. No nausea. Normal bowel and blood movements. Blood pressure somewhat soft in the ER. Has leukocytosis. Lactic acid is okay. Patient tfollowed up with surgery on June 20 and plan was to repeat CT scan in 1 week and follow-up in clinic same week and recommended to continue local wound and drain care. Patient's seem to had CT scan on July 03 but not followed up with surgery yet. Abdominal wound dehiscence Anterior abdominal wall abscess Complicated surgical history as above Comes with incisional wound dehiscence in the upper part of incision. CT scan showing 1.6 x 1.3x 5.5 central fluid collection in the anterior abdominal wall with subcutaneous emphysema. On IV Vanco and Zosyn, continue IV fluids IV Tylenol as needed Abscess was somewhat drained in the ER and culture sent Will follow the cultures Patient still with drains from the recent surgeries done well Removal of those drains as per surgery Also seems to have small opening at umbilical site- await surgery inputs Close monitor Infectious disease also consult CT abdomen with PO and iv contrast ordered GERD On omeprazole, continue DVT prophylaxis SCDs for now Disposition Telemetry Please note the above document was generated using voice recognition software. It may contain grammatical, syntax or spelling errors. Any formal questions or concerns about the content, text or information contained within the body of this dictation should be directly addressed to the provider for clarification Admission and Anticipated Discharge Date Admission Date: July 09, 2024 Subjective Patient seen and examined at bedside He is comfortable lying on the bed; not in distress Reports generalized fatigue and discomfort Vital signs stable and he is saturating well on room air Review of Systems Review of Systems: All systems reviewed & are unremarkable except as noted in Subjective Physical Exam Physical Exam: Constitutional: Alert oriented x 3; not in distress. Respiratory: b/l vesicular breath sound Cardiovascular: RRR, no murmur, no edema Vessels: no JVD or carotid bruit Chest: normal inspection of chest Abdomen: tenderness; midline incision with 2 openings with drainage of brownish fluid Musculoskeletal: no cyanosis or clubbing, extremities motor strength 5/5 Skin: no rashes, warm and dry normal turgor Neurologic: PERRL, EOMI, accommodation nl, no face palsy, no dysarthria CN's II- XI intact bilaterally and moves all extremities Psychiatric: A+Ox3, euthymic affect Results & Data Results & Data Vital Signs (Past 12 Hours) Vital Signs Temp Pulse Pulse Resp BP BP BP 07/09/24 13:50 36.8 C 102 H 20 106/68 07/09/24 12:31 37.6 C H 77 18 111/69 111/69 07/09/24 10:00 95 H 24 07/09/24 09:51 96 H 23 07/09/24 09:45 98 H 25 H 07/09/24 09:45 114/79 07/09/24 09:45 114/79 07/09/24 09:36 95 H 23 07/09/24 09:21 96 H 24 07/09/24 09:15 100/71 07/09/24 09:00 109/73 07/09/24 08:51 93 H 23 07/09/24 08:45 95 H 26 H 07/09/24 08:45 113/73 07/09/24 08:45 113/73 07/09/24 08:45 113/73 07/09/24 08:30 117/77 07/09/24 08:24 96 H 07/09/24 08:20 94 H 07/09/24 08:15 114/72 07/09/24 08:06 100 H 22 07/09/24 08:00 107/70 07/09/24 08:00 107/70 07/09/24 08:00 107/70 07/09/24 08:00 95 H 28 H 07/09/24 07:54 92 H 27 H 07/09/24 07:45 107/73 07/09/24 07:45 107/73 07/09/24 07:45 107/73 07/09/24 07:42 89 25 H 07/09/24 07:30 111/69 07/09/24 07:30 87 26 H 07/09/24 07:15 89 26 H 07/09/24 07:15 102/71 07/09/24 07:15 102/71 07/09/24 07:15 102/71 07/09/24 07:06 89 26 H 07/09/24 06:54 86 25 H 07/09/24 06:45 86 27 H 07/09/24 06:45 96/74 L 07/09/24 06:45 96/74 L 07/09/24 06:45 96/74 L 07/09/24 06:45 96/74 L 07/09/24 06:30 87 25 H 07/09/24 06:30 111/68 07/09/24 06:30 111/68 07/09/24 06:30 111/68 07/09/24 06:30 111/68 07/09/24 06:21 91 H 18 07/09/24 06:18 87 17 07/09/24 06:15 110/80 07/09/24 06:09 87 25 H 07/09/24 06:00 104/71 07/09/24 06:00 88 24 07/09/24 05:45 103/67 07/09/24 05:45 87 23 07/09/24 05:42 89 24 07/09/24 05:33 88 23 07/09/24 05:30 95/63 L 07/09/24 05:30 95/63 L 07/09/24 05:30 95/63 L 07/09/24 05:30 95/63 L 07/09/24 05:18 87 22 07/09/24 05:15 94/63 L 07/09/24 05:15 94/63 L 07/09/24 05:15 85 14 07/09/24 05:12 83 20 07/09/24 05:00 91/61 L 07/09/24 05:00 90 21 07/09/24 05:00 88 21 91/61 L 07/09/24 04:51 91 H 21 07/09/24 04:45 110/67 07/09/24 04:45 110/67 07/09/24 03:45 94 H 07/09/24 03:00 94 H 27 H 104/72 Pulse Ox O2 Del Method 07/09/24 13:50 95 Room Air 07/09/24 12:31 96 Room Air 07/09/24 10:00 96 07/09/24 09:51 96 07/09/24 09:45 96 07/09/24 09:45 07/09/24 09:45 07/09/24 09:36 95 07/09/24 09:21 95 07/09/24 09:15 07/09/24 09:00 07/09/24 08:51 95 07/09/24 08:45 96 07/09/24 08:45 07/09/24 08:45 07/09/24 08:45 07/09/24 08:30 07/09/24 08:24 95 07/09/24 08:20 07/09/24 08:15 07/09/24 08:06 96 07/09/24 08:00 07/09/24 08:00 07/09/24 08:00 07/09/24 08:00 96 07/09/24 07:54 96 07/09/24 07:45 07/09/24 07:45 07/09/24 07:45 07/09/24 07:42 97 07/09/24 07:30 07/09/24 07:30 97 07/09/24 07:15 98 07/09/24 07:15 07/09/24 07:15 07/09/24 07:15 07/09/24 07:06 97 07/09/24 06:54 97 07/09/24 06:45 97 07/09/24 06:45 07/09/24 06:45 07/09/24 06:45 07/09/24 06:45 07/09/24 06:30 97 07/09/24 06:30 07/09/24 06:30 07/09/24 06:30 07/09/24 06:30 07/09/24 06:21 97 07/09/24 06:18 98 07/09/24 06:15 07/09/24 06:09 97 07/09/24 06:00 07/09/24 06:00 96 07/09/24 05:45 07/09/24 05:45 95 07/09/24 05:42 96 07/09/24 05:33 95 07/09/24 05:30 07/09/24 05:30 07/09/24 05:30 07/09/24 05:30 07/09/24 05:18 94 07/09/24 05:15 07/09/24 05:15 07/09/24 05:15 95 07/09/24 05:12 95 07/09/24 05:00 07/09/24 05:00 95 07/09/24 05:00 95 Room Air 07/09/24 04:51 95 07/09/24 04:45 07/09/24 04:45 07/09/24 03:45 07/09/24 03:00 94 Room Air
[2024-07-09] MEDS: D5W AND NSS 1,000 ML IV SCH (15:17)
--- NOTE | 2024-07-09 19:57 | Electrocardiogram Report ---
Test Reason : Blood Pressure : */* mmHG Vent. Rate : 97 BPM Atrial Rate : 97 BPM P-R Int : 160 ms QRS Dur : 78 ms QT Int : 356 ms P-R-T Axes : 47 5 36 degrees QTcB Int : 452 ms Normal sinus rhythm Cannot rule out Anterior infarct , age undetermined Abnormal ECG No previous ECGs available Confirmed by Pancho Almazan ([id number]) on 07/09/2024 7:57:04 PM Referred By: REFERRED SELF Confirmed By: Pancho Almazan
[2024-07-09] MEDS: MoRPHine SULFATE 2 MG/ML CARP IV PRN (20:03)
[2024-07-09] MEDS: NORTRIPTYLINE HCL 25 MG CAP PO SCH (20:04)
[2024-07-10] MEDS: MoRPHine SULFATE 2 MG/ML CARP IV PRN (00:28)
[2024-07-10] MEDS: ACETAMINOPHEN 325 MG TAB PO PRN (00:30)
[2024-07-10 06:11] LABS: BUN Creatinine Ratio 17.4 (10-20); Calcium 7.4 mg/dl (8.6-10.3); Creatinine Clr Calc Pharmacy 116.3 ml/min; Est GFR (African American) 120.4 ml/min; Est GFR (Non-African American) 103.9 ml/min; Magnesium 1.4 mg/dl (1.7-2.4); Potassium 3.2 mmol/L (3.5-5.1)
[2024-07-10 06:16] LABS: Basophils # (auto) 0.04 K/uL (0.00-0.20); Basophils % (auto) 0.3 %; Eosinophils % (auto) 4.3 %; Hematocrit (blood only) 28.4 % (42.0-52.0); Immature Granulocytes # (auto) 0.07 K/uL (0.01-0.20); Immature Granulocytes % (auto) 0.5 %; Lymphocytes # (auto) 1.42 K/uL (1.20-3.40); Lymphocytes % (auto) 10.1 %; Mean Corpuscular Hemoglobin 27.1 pg (25.0-34.0); Mean Corpuscular Hgb Conc 31.7 g/dL (32.0-36.0); Mean Corpuscular Volume 85.5 fL (80.0-100.0); Mean Platelet Volume 9.3 fL (9.4-12.4); Monocytes # (auto) 0.85 K/uL (0.11-0.59); Monocytes % (auto) 6.1 %; Neutrophils # (auto) 11.04 K/uL (1.40-6.50); Neutrophils % (auto) 78.7 %; Platelet Count 473 K/uL (130-400); RDW Coefficient of Variation 16.1 % (11.5-14.5); RDW Standard Deviation 50.9 fL (36.4-46.3); Red Blood Count 3.32 M/uL (4.70-6.10); White Blood Count 14.02 K/ul (4.8-10.8)
[2024-07-10] MEDS: VANCOMYCIN HCL 1,000 MG in SODIUM CHLORIDE 0.9% 250 ML IV SCH (08:37)
--- NOTE | 2024-07-10 08:47 | Pharmacy Report ---
Pharmacy PK ABX Note - Date of Service July 10, 2024 - Assessment and Plan Assessment * 59 year old M receiving piperacillin/tazobactam and vancomycin for treatment of intraabdominal abscess w wound dehiscence * PMH: very complex recent intraabdominal history indlucing lap lanie in May with prolonged complicated hospital course. Followed by ID and recommended x4 weeks of micafungin and pip/tazo, ending 06/21 * Pertinent microbiologic data includes: abdominal culture growing Staphylococcus species, blood culture shows no growth @24 hours * Renal function stable Plan Vancomycin * Current regimen: 1250 mg IV every 12 hours * Random level obtained 07/10/24 resulted as 15.1 mcg/mL. This is predicted to achieve target AUC/JUDD of 400-600 mg/L.hr * Change to 1000 mg IV every 8 hours to increase likelihood of target AUC/JUDD attainment * Predicted AUC at steady state: 572 mg/L.hr * Will repeat level once new regimen is at steady-state Pharmacy will continue to follow and will adjust dose/frequency as necessary. Thank you. Pharmacy has transitioned to AUC monitoring for vancomycin. AUC/JUDD is the preferred PK/PD target and is associated with decreased risk of nephrotoxicity compared to traditional trough targets.
[2024-07-10] MEDS ORDERED: VANCOMYCIN LEVEL ONE (09:30)
--- NOTE | 2024-07-10 10:16 | Hospitalist Progress Note ---
Date of Service July 10, 2024 Assessment & Plan (1) Abdominal wound dehiscence: Plan: 59-year-old male from [place] who recently had complicated hospital course for acute cholangitis comes because of abdominal wound dehiscence and found to have abscess. Patient presented to [facility] with abdominal pain and jaundice and found to have choledocholithiasis and acute cholangitis and transferred to [place] on 05/06/2024. As per d/c summary from [place]:" Underwent ERCP with sphincterectomy and balloon sphincteroplasty on 05/07 and noted to have single stone within the duct. Underwent laparoscopic cholecystectomy on 05/08. On overnight 05/12 to 05/13 he had episodes of hematemesis and noted to have increasing abdominal distention and NGT was placed with dark bloody output and lactic acid greater than 9 and CTA without acute extravasation however d emonstrated large gastric distention with a blood concerning for sphincterotomy bleed versus upper GI bleed and moderate right RP hemorrhage. He was transfused 3 units of PRBCs and transferred to ICU. On 05/13 he was intubated for airway protection. ERCP done on 05/14 showed retained CBD stone and bleeding at the site of the prior sphincterectomy and a possible small contained perforation. The initial stent was noted to be in major papilla and was removed and fully covered metal stent was placed in the CBD. HIDA was negative. Hemoglobin has been stable but required pressors. . Off pressors from 05/16. ID added meropenem. The patient was having persistent elevated WBC. C. difficile was negative. CT abdominal and pelvis showed intra-abdominal collections. Return to the OR for increasing pressor requirements and worsening exam and found to have duodenal perforation and purulent intra-abdominal fluid was washed out and ABThera placed. Again return to the OR on 05/21 at which time he underwent pyloric exclusion and gastrojejunal anastomosis and 3 drains were left in place at the time. On 05/[address] abdominal pelvis demonstrated large volume ascites within the subdiaphragmatic space with mass effect of the hepatic dome and stomach. On 05/29 Zosyn and Diflucan per ID recommendations and had IR aspiration of 460 mL of pleural purulent fluid. Patient was extubated and off of pressors. On 05/30 NG tube was DC'd and diet was advanced to clear liquid diet and antifungal changed from Diflucan to micafungin per ID recommendations as cultures grew MADELINEYMA SARAHI. 06/02 follow-up CT abdomen pelvis showed no evidence of leak at the gastrojejunostomy and decreased size of the largest collection in the left subdiaphragmatic region. Midline incision draining purulent bilious drainage at the umbilicus and a small fascial dehiscence palpated below it packed with small piece 4 and 4. On 06/04 abscess was too small to drain by IR drain so was continue with antibiotic treatment. Final ID recommendations was to continue IV micafungin and and Zosyn for 4 weeks. 06/05 PICC line placed for long-term vascular access for TPN antibiotics. On 06/06/2024 patient was discharged to [facility]." Seems he was in [facility] for 1 week and discharged back to [facility]. Completed antibiotics on June 21. Was placed on Lovenox until July 06, 2024. Patient states he is having on and off abdominal pain since discharge. Last night upper part of the incision opened up and was draining and was sent here. CT scan showing 1.6X 5.5 cm fluid collection in the anterior abdominal wall with subcutaneous emphysema. ER talked to surgery superintendent [employer] and was okay to keep the patient here and will be evaluated. IV Vanco and Zosyn given in the ER. Patient has no fevers. . Denies any headache. No runny nose or sore throat. No difficulty swallowing. Denies chest pain or shortness of breath. No nausea. Normal bowel and blood movements. Blood pressure somewhat soft in the ER. Has leukocytosis. Lactic acid is okay. Patient followed up with surgery on June 20 and plan was to repeat CT scan in 1 week and follow-up in clinic same week and recommended to continue local wound and drain care. Patient's seem to had CT scan on July 03 but not followed up with surgery yet. Abdominal wound dehiscence Anterior abdominal wall abscess Complicated surgical history as above Comes with incisional wound dehiscence in the upper part of incision. Drainage of brownish fluid. CT scan showing 1.6 x 1.3x 5.5 central fluid collection in the anterior abdominal wall with subcutaneous emphysema. Culture from drainage growing staphylococcus species Blood culture- NGTD On IV Vanco and Zosyn, continue Continue IV fluids Continue IV Tylenol as needed Patient still with drains from the recent surgeries done well; Removal of those drains as per surgery Infectious disease evaluation pending CT abdomen with PO and iv contrast ordered as per surgery recommendation. GERD On omeprazole, continue DVT prophylaxis heparin Disposition Telemetry Time spent evaluating patient, direct bedside care, chart review, placing orde rs, interpretation of diagnostic studies, discussion with consultants, patient, and family members, as well as other required patient management activities is 50 minutes Please note the above document was generated using voice recognition software. It may contain grammatical, syntax or spelling errors. Any formal questions or concerns about the content, text or information contained within the body of this dictation should be directly addressed to the provider for clarification Admission and Anticipated Discharge Date Admission Date: July 09, 2024 Subjective Patient seen and examined at bedside He is comfortable lying on the bed; not in distress Reports that he feels better overall Vital signs stable and he is saturating well on room air Review of Systems Review of Systems: All systems reviewed & are unremarkable except as noted in Subjective Physical Exam Physical Exam: Constitutional: Alert oriented x 3; not in distress. Respiratory: b/l vesicular breath sound Cardiovascular: RRR, no murmur, no edema Vessels: no JVD or carotid bruit Chest: normal inspection of chest Abdomen: tenderness; midline incision with 2 openings with drainage of brownish fluid Musculoskeletal: no cyanosis or clubbing, extremities motor strength 5/5 Skin: no rashes, warm and dry normal turgor Neurologic: PERRL, EOMI, accommodation nl, no face palsy, no dysarthria CN's II- XI intact bilaterally and moves all extremities Psychiatric: A+Ox3, euthymic affect Results & Data Results & Data Vital Signs (Past 12 Hours) Vital Signs Temp Pulse Pulse Resp BP BP Pulse Ox 07/10/24 07:35 102 H 07/10/24 07:31 36.8 C 103 H 18 114/73 96 07/10/24 03:37 36.5 C 111 H 18 100/67 95 07/10/24 01:45 116 H 07/10/24 01:45 07/09/24 22:35 37.1 C 124 H 18 118/73 94 O2 Del Method 07/10/24 07:35 07/10/24 07:31 Room Air 07/10/24 03:37 Room Air 07/10/24 01:45 07/10/24 01:45 Room Air 07/09/24 22:35 Room Air
[2024-07-10] MEDS: MAGNESIUM SULFATE / D5W 1 GM/100 ML BAG IV SCH (10:32)
[2024-07-10] MEDS: POTASSIUM CHLORIDE CRTAB 20 MEQ TABCR PO STA (10:32)
[2024-07-10] MEDS: OPTIRAY 320 100ml IV ONE (12:25)
--- NOTE | 2024-07-10 12:27 | Surgery Progress Note ---
Date of Service July 10, 2024 Assessment & Plan (1) Abdominal wound dehiscence: (2) Sepsis: Plan 59-year-old man presents after extensive surgical/gastrointestinal history as detailed above. He has a superficial dehiscence of his midline wound with thick brownish purulent fluid. Is unclear whether this represents a superficial abscess versus a fistula or true dehiscence. No bowel is noted in the incision. He is on IV antibiotics and I will continue this. N.p.o. for now. repeat CT scan with oral and IV contrast to determine whether there is a fistulous tract scheduled today. If he has any issue more complicated than a superficial wound infection, he will need to be transferred back to [place] given the severity of his condition. We will continue to follow. Admission and Anticipated Discharge Date Admission Date: July 09, 2024 Supervising Physician Co-Signing Physician Notes I have seen and examined the patient agree with the above assessment and plan. He continues to have purulent drainage from the midline incision. We are awaiting CT scan with oral and IV contrast to determine whether there is a fistula. Further recommendations based on the results of the CT scan. Continue conservative treatment for now. Subjective feeling about the same discomfort at midline incision/wound trying to drink the oral contrast some chills Physical Exam Constitutional: + thin, + frail appearing and cooperativ e; no acute distress and not ill appearing Respiratory: normal respiratory effort; no respiratory distress Gastrointestinal (Abdomen): Inspection/Auscultation: abdomen normal to inspection, + abdominal surgical scar (midline laparotomy) and + abdominal surgical drain present (purulent drainage); abdomen not distended Percussion/Palpation: + abdomen tender (at midline incision) and abdomen soft; no guarding and abdomen not rigid midline laparotomy incision with superior wound with fibrinous/purulent drainage. Inferior aspect of incision with wound with dark purulent drainage. Skin: no rashes, warm and dry Psychiatric: Orientation: alert and oriented x 3 Results & Data Vital Signs (Past 12 Hours) Vital Signs Temp Pulse Pulse Resp BP BP Pulse Ox 07/10/24 11:15 36.6 C 100 H 17 114/75 96 07/10/24 07:35 102 H 07/10/24 07:31 36.8 C 103 H 18 114/73 96 07/10/24 03:37 36.5 C 111 H 18 100/67 95 07/10/24 01:45 116 H 07/10/24 01:45 O2 Del Method 07/10/24 11:15 Room Air 07/10/24 07:35 07/10/24 07:31 Room Air 07/10/24 03:37 Room Air 07/10/24 01:45 07/10/24 01:45 Room Air Laboratory Results 07/10/24 07/09/24 Range/Units 05:33 20:50 WBC 14.02 H (4.8-10.8) K/ul RBC 3.32 L (4.70-6.10) M/uL Hgb 9.0 L (14.0-18.0) g/dl Hct 28.4 L (42.0-52.0) % MCV 85.5 (80.0-100.0) fL MCH 27.1 (25.0-34.0) pg MCHC 31.7 L (32.0-36.0) g/dL RDW Std Deviation 50.9 H (36.4-46.3) fL RDW Coeff of [place] 16.1 H (11.5-14.5) % Plt Count 473 H (130-400) K/uL MPV 9.3 L (9.4-12.4) fL Immature Gran % (Auto) 0.5 % Neut % (Auto) 78.7 % Lymph % (Auto) 10.1 % [place] % (Auto) 6.1 % Eos % (Auto) 4.3 % Baso % (Auto) 0.3 % Neut # (Auto) 11.04 H (1.40-6.50) K/uL Lymph # (Auto) 1.42 (1.20-3.40) K/uL [place] # (Auto) 0.85 H (0.11-0.59) K/uL Eos # (Auto) 0.60 H (0.00-0.50) K/uL Baso # (Auto) 0.04 (0.00-0.20) K/uL Immature Gran # (Auto) 0.07 (0.01-0.20) K/uL Sodium 137 (136-145) mmol/L Potassium 3.2 L (3.5-5.1) mmol/L Chloride 107 (98-107) mmol/L Carbon Dioxide 24 (21-32) mmol/L Anion Gap 6 (3-11) BUN 12 (6-23) mg/dl Creatinine 0.69 (0.6-1.4) mg/dl Est Cr Clr Drug Dosing 116.3 ml/min Est GFR ( Amer) 120.4 ml/min Est GFR (Non-Af Amer) 103.9 ml/min BUN/Creatinine Ratio 17.4 (10-20) Glucose 116 H (70-99(Fasting)) mg/dl Calcium 7.4 L (8.6-10.3) mg/dl Magnesium 1.4 L (1.7-2.4) mg/dl Nasal Screen MRSA (PCR) Negative (Negative) Random Vancomycin 15.1 (10-20) mcg/ml
[2024-07-10] MEDS: HEPARIN SOD 5,000 UNIT/0.5 ML VIAL SQ SCH (15:30)
--- NOTE | 2024-07-11 07:22 | CT Scan Report ---
CT OF THE ABDOMEN AND PELVIS WITH CONTRAST CLINICAL HISTORY: Rule out fistula, evaluation of abscess. COMPARISON STUDY: CT of the abdomen and pelvis July 09, 2024. TECHNIQUE: Following IV administration of 93 mL of Optiray, axial images of the abdomen and pelvis we re obtained from the lung bases to the proximal femurs. Images were reviewed in the axial, sagittal, and coronal planes. IV contrast was administered without complication. Automated exposure control wa s utilized for the study. A dose lowering technique was utilized adhering to the principles of ALARA . Oral contrast was administered. CT DOSE: 692.98 mGy.cm FINDINGS: Visualized portions of the lower chest demonstrate small bilateral pleural effusions with s ubpleural opacity suggestive atelectasis. There is no pneumatosis, free air or portal venous gas. Sev eral surgical drains are in place status post gastrojejunostomy. An open abdominal wound is noted. No definite oral contrast extends into the wound. However, there are several adjacent fluid containing rim enhancing tracks which extend to the wound. The findings raise the possibility of an occult fistu la. Multiple rim-enhancing abdominal and pelvic fluid collections are present. The largest is a left subdiaphragmatic collection that measures 7.7 x 4.8 cm. This communicates with several smaller anteri or abdominal fluid collections. A right retroperitoneal fluid collection, inferior to the right kidne y on image 253 measures 6.1 x 2.9 cm. A right upper quadrant fluid collection on image 149 measures 3 .6 x 2.7 cm. A fluid collection within the right anterior pararenal space on image 167 measures 6.5 x 2.3 cm. A right paracolic gutter fluid fluid collection on image 294 measures 3.6 x 2.5 cm. Central pelvic fluid collection on image 377 measures 4.2 x 2.9 cm. There is no evidence for a bowel obstruct ion. A stent within the common bile duct is present. There is no biliary ductal dilatation. Hypodense hepatic lesions represent cysts. Spleen, adrenal glands, kidneys and pancreas are unremarkable. [place] r vasculature is patent. IMPRESSION: 1. Extensive postoperative findings within the abdomen. Status post gastrojejunostomy with open abdom inal wound. No oral contrast within the wound to definitively indicate a fistula. However, several je junal loops are in close proximity to the wound and gas filled tracks extend from the wound to rim-en hancing fluid collections within the abdomen. Noncontrast containing fistulas cannot be excluded. 2. Numerous rim-enhancing fluid collections within the abdomen and pelvis, the largest of which is a left subdiaphragmatic collection which measures 7.7 x 4.8 cm. Multiple right retroperitoneal fluid co llections. These are suggestive of multifocal abscesses. 3. No bowel obstruction. 4. Small bilateral pleural effusions with subpleural opacity suggestive of atelectasis. 5. Common bile duct stent in place. No biliary ductal dilatation. ACT 112: Negative or not required by law. Electronically signed by: Koko Deleon M.D. 07/11/2024 7:19 AM
[2024-07-11 07:55] LABS: Basophils # (auto) 0.01 K/uL (0.00-0.20); Basophils % (auto) 0.1 %; Eosinophils # (auto) 0.62 K/uL (0.00-0.50); Eosinophils % (auto) 4.5 %; Hematocrit (blood only) 29.2 % (42.0-52.0); Hemoglobin 9.2 g/dl (14.0-18.0); Immature Granulocytes # (auto) 0.09 K/uL (0.01-0.20); Immature Granulocytes % (auto) 0.7 %; Lymphocytes # (auto) 1.95 K/uL (1.20-3.40); Lymphocytes % (auto) 14.2 %; Mean Corpuscular Hemoglobin 26.7 pg (25.0-34.0); Mean Corpuscular Hgb Conc 31.5 g/dL (32.0-36.0); Mean Corpuscular Volume 84.9 fL (80.0-100.0); Mean Platelet Volume 8.9 fL (9.4-12.4); Neutrophils # (auto) 9.99 K/uL (1.40-6.50); Neutrophils % (auto) 72.5 %; Platelet Count 472 K/uL (130-400); RDW Coefficient of Variation 16.2 % (11.5-14.5); RDW Standard Deviation 50.2 fL (36.4-46.3); Red Blood Count 3.44 M/uL (4.70-6.10); White Blood Count 13.76 K/ul (4.8-10.8)
[2024-07-11 08:12] LABS: BUN Creatinine Ratio 13.8 (10-20); Calcium 7.2 mg/dl (8.6-10.3); Creatinine Clr Calc Pharmacy 144.3 ml/min; Est GFR (African American) 129.3 ml/min; Est GFR (Non-African American) 111.6 ml/min; Potassium 3.2 mmol/L (3.5-5.1)
[2024-07-11] MEDS: POTASSIUM CHLORIDE CRTAB 20 MEQ TABCR PO SCH (10:07)
[2024-07-11] MEDS ORDERED: MoRPHine SULFATE 2 MG/ML CARP IV PRN (13:32)
[2024-07-11] MEDS: MoRPHine SULFATE 2 MG/ML CARP IV PRN (14:23)
--- NOTE | 2024-07-11 14:27 | Surgery Progress Note ---
Date of Service July 11, 2024 Assessment & Plan (1) Abdominal wound dehiscence: (2) Sepsis: Plan 59-year-old man presents after extensive surgical/gastrointestinal history as detailed above. He has a superficial dehiscence of his midline wound with thick brownish purulent fluid. No evidence of fistula on repeat CT scan. left subdiaphragmatic abscess measuring 7 cm however smaller compared to [facility] CT Scan at [facility] on [facility] in which it was measuring 14.6 x 7.5 x 4.3 cm. Leukocytosis trending down. Afebrile Plan: Continue IV antibiotics await infectious disease recommendations advance diet to clear liquids continue drains, nursing order to strip drains to allow better drainage dressing changes as needed midline wound with [employer] per wound nurse recommendations AMbulate incentive scds continue medical management Discussed with dr. carr who agrees with above. Admission and Anticipated Discharge Date Admission Date: July 09, 2024 Supervising Physician Co-Signing Physician Notes I have seen and examined the patient personally and agree with the above assessment plan. CT scan does not demonstrate evidence of fistula, left subdiaphragmatic abscess is smaller than his last CT scan in [place]. Will continue conservative management, advance diet as tolerated. Subjective overall feeling about the same, pain about the same, not worse drainage coming around the upper drain site, very sore to touch low appetite no nausea or vomiting no fevers or chills Physical Exam Constitutional: WD/WN, vitals as above + frail appearing, cooperative and comfortable; no acute distress and not ill appearing Respiratory: normal respiratory effort; no respiratory distress Gastrointestinal (Abdomen): Inspection/Auscultation: abdomen normal to inspection, + abdominal surgical incision and + abdominal surgical drain present (purulent LLQ, RUQ drain with minimal output); abdomen not distended Midline laparotomy incision with dehiscence of superior aspect with open wound with fibrinous tissue and purulent drainage. Undermining present. Purulent drainage from the RUQ drain site with macerated skin. Tender to palpation. RUQ drain does not hold suction. RLQ drain with thick purulent drainage in tubing and bulb. Skin: no rashes, warm and dry Psychiatric: Orientation: alert and oriented x 3 Results & Data Vital Signs (Past 12 Hours) Vital Signs Temp Pulse Pulse Resp BP Pulse Ox O2 Del Method 07/11/24 11:17 36.7 C 96 H 18 111/74 96 Room Air 07/11/24 09:00 Room Air 07/11/24 07:26 98 H 07/11/24 07:19 36.7 C 99 H 18 108/66 94 Room Air 07/11/24 02:44 36.9 C 103 H 16 106/70 93 Room Air Laboratory Results 07/11/24 Range/Units 07:33 WBC 13.76 H (4.8-10.8) K/ul RBC 3.44 L (4.70-6.10) M/uL Hgb 9.2 L (14.0-18.0) g/dl Hct 29.2 L (42.0-52.0) % MCV 84.9 (80.0-100.0) fL MCH 26.7 (25.0-34.0) pg MCHC 31.5 L (32.0-36.0) g/dL RDW Std Deviation 50.2 H (36.4-46.3) fL RDW Coeff of [place] 16.2 H (11.5-14.5) % Plt Count 472 H (130-400) K/uL MPV 8.9 L (9.4-12.4) fL Immature Gran % (Auto) 0.7 % Neut % (Auto) 72.5 % Lymph % (Auto) 14.2 % [place] % (Auto) 8.0 % Eos % (Auto) 4.5 % Baso % (Auto) 0.1 % Neut # (Auto) 9.99 H (1.40-6.50) K/uL Lymph # (Auto) 1.95 (1.20-3.40) K/uL [place] # (Auto) 1.10 H (0.11-0.59) K/uL Eos # (Auto) 0.62 H (0.00-0.50) K/uL Baso # (Auto) 0.01 (0.00-0.20) K/uL Immature Gran # (Auto) 0.09 (0.01-0.20) K/uL Sodium 133 L (136-145) mmol/L Potassium 3.2 L (3.5-5.1) mmol/L Chloride 104 (98-107) mmol/L Carbon Dioxide 25 (21-32) mmol/L Anion Gap 4 (3-11) BUN 8 (6-23) mg/dl Creatinine 0.58 L (0.6-1.4) mg/dl Est Cr Clr Drug Dosing 144.3 ml/min Est GFR ( Amer) 129.3 ml/min Est GFR (Non-Af Amer) 111.6 ml/min BUN/Creatinine Ratio 13.8 (10-20) Glucose 114 H (70-99(Fasting)) mg/dl Calcium 7.2 L (8.6-10.3) mg/dl Diagnostic Findings CT OF THE ABDOMEN AND PELVIS WITH CONTRAST CLINICAL HISTORY: Rule out fistula, evaluation of abscess. COMPARISON STUDY: CT of the abdomen and pelvis July 09, 2024. TECHNIQUE: Following IV administration of 93 mL of Optiray, axial images of the abdomen and pelvis were obtained from the lung bases to the proximal femurs. Images were reviewed in the axial, sagittal, and coronal planes. IV contrast was administered without complication. Automated exposure control was utilized for the study. A dose lowering technique was utilized adhering to the principles of ALARA. Oral contrast was administered. CT DOSE: 692.98 mGy.cm FINDINGS: Visualized portions of the lower chest demonstrate small bilateral pleural effusions with subpleural opacity suggestive atelectasis. There is no pneumatosis, free air or portal venous gas. Several surgical drains are in place status post gastrojejunostomy. An open abdominal wound is noted. No definite oral contrast extends into the wound. However, there are several adjacent fluid containing rim enhancing tracks which extend to the wound. The findings raise the possibility of an occult fistula. Multiple rim-enhancing abdominal and pelvic fluid collections are present. The largest is a left subdiaphragmatic collection that measures 7.7 x 4.8 cm. This communicates with several smaller anterior abdominal fluid collections. A right retroperitoneal fluid collection, inferior to the right kidney on image 253 measures 6.1 x 2.9 cm. A right upper quadrant fluid collection on image 149 measures 3.6 x 2.7 cm. A fluid collection within the right anterior pararenal space on image 167 measures 6.5 x 2.3 cm. A right paracolic gutter fluid fluid collection on image 294 measures 3.6 x 2.5 cm. Central pelvic fluid collection on image 377 measures 4.2 x 2.9 cm. There is no evidence for a bowel obstruction. A stent within the common bile duct is present. There is no biliary ductal dilatation. Hypodense hepatic lesions represent cysts. Spleen, adrenal glands, kidneys and pancreas are unremarkable. Major vasculature is patent. IMPRESSION: 1. Extensive postoperative findings within the abdomen. Status post gastrojejunostomy with open abdominal wound. No oral contrast within the wound to definitively indicate a fistula. However, several jejunal loops are in close proximity to the wound and gas filled tracks extend from the wound to rim- enhancing fluid collections within the abdomen. Noncontrast containing fistulas cannot be excluded. 2. Numerous rim-enhancing fluid collections within the abdomen and pelvis, the largest of which is a left subdiaphragmatic collection which measures 7.7 x 4.8 cm. Multiple right retroperitoneal fluid collections. These are suggestive of multifocal abscesses. 3. No bowel obstruction. 4. Small bilateral pleural effusions with subpleural opacity suggestive of atelectasis. 5. Common bile duct stent in place. No biliary ductal dilatation.
--- NOTE | 2024-07-11 16:12 | Hospitalist Progress Note ---
Date of Service July 11, 2024 Assessment & Plan (1) Abdominal wound dehiscence: Plan: 59-year-old male from [facility] who recently had complicated hospital course for acute cholangitis comes because of abdominal wound dehiscence and found to have abscess. Patient presented to [facility] with abdominal pain and jaundice and found to have choledocholithiasis and acute cholangitis and transferred to [place] on 05/06/2024. As per d/c summary from [place]:" "" Underwent ERCP with sphincterectomy and balloon sphincteroplasty on 05/07 and noted to have single stone within the duct. Underwent laparoscopic cholecyst ectomy on 05/08. On overnight 05/12 to 05/13 he had episodes of hematemesis and noted to have increasing abdominal distention and NGT was placed with dark bloody output and lactic acid greater than 9 and CTA without acute extravasation however demonstrated large gastric distention with a blood concerning for sphincterotomy bleed versus upper GI bleed and moderate right RP hemorrhage. He was transfused 3 units of PRBCs and transferred to ICU. On 05/13 he was intubated for airway protection. ERCP done on 05/14 showed retained CBD stone and bleeding at the site of the prior sphincterectomy and a possible small contained perforation. The initial stent was noted to be in major papilla and was removed and fully covered metal stent was placed in the CBD. HIDA was negative. Hemoglobin has been stable but required pressors. Off pressors from 05/16. ID added meropenem. The patient was having persistent elevated WBC. C. difficile was negative. CT abdominal and pelvis showed intra-abdominal collections. Return to the OR for increasing pressor requirements and worsening exam and found to have duodenal perforation and purulent intra-abdominal fluid was washed out and ABThera placed. Again return to the OR on 05/21 at which time he underwent pyloric exclusion and gastrojejunal anastomosis and 3 drains were left in place at the time. On 05/[address] abdominal pelvis demonstrated large volume ascites within the subdiaphragmatic space with mass effect of the hepatic dome and stomach. On 05/29 Zosyn and Diflucan per ID recommendations and had IR aspiration of 460 mL of pleural purulent fluid. Patient was extubated and off of pressors. On 05/30 NG tube was DC'd and diet was advanced to clear liquid diet and antifungal changed from Diflucan to micafungin per ID recommendations as cultures grew MADELINEYMA SARAHI. 06/02 follow-up CT abdomen pelvis showed no evidence of leak at the gastrojejunostomy and decreased size of the largest collection in the left subdiaphragmatic region. Midline incision draining purulent bilious drainage at the umbilicus and a small fascial dehiscence palpated below it packed with small piece 4 and 4. On 06/04 abscess was too small to drain by IR drain so was continue with antibiotic treatment. Final ID recommendations was to continue IV micafungin and and Zosyn for 4 weeks. 06/05 PICC line placed for long-term vascular access for TPN antibiotics. On 06/06/2024 [facility]." Patient followed up with surgery on June 20 and plan was to repeat CT scan in 1 week and follow-up in clinic same week and recommended to continue local wound and drain care. Patient's seem to had CT scan on July 03 but not followed up with surgery yet. Seems he [facility] 1 week and discharged back to [facility]. Completed antibiotics on June 21. Was placed on Lovenox until July 06, 2024. Patient stated he was having on and off abdominal pain since discharge. The night VETERINARY SURGERY TECHNICIAN, upper part of the incision opened up and was draining and was sent here. CT scan showing 1.6X 5.5 cm fluid collection in the anterior abdominal wall with subcutaneous emphysema. ER spoke w/surgery vocational childcare teacher and was okay to keep the patient here and will be evaluated. IV Vanco and Zosyn given in the ER. Patient has no fevers. Denies any headache. No runny nose or sore throat. No difficulty swallowing. Denies chest pain or shortness of breath. No nausea. Normal bowel and blood movements. Blood pressure somewhat soft in the ER. Has leukocytosis. Lactic acid was okay. Abdominal wound dehiscence Anterior abdominal wall abscess Complicated surgical history as above Comes with incisional wound dehiscence in the upper part of incision. Drainage of brownish fluid. Admitting CTAP scan showing 1.6 x 1.3x 5.5 central fluid collection in the anterior abdominal wall with subcutaneous emphysema. Repeat CTAP w/ PO and IV contrast: multiple abscess, no fistulas noted per read. Culture from drainage growing staphylococcus species, MSSA Blood culture- NGTD On IV Vanco 9/2 and Zosyn 9/2, DC vanc /4, continue zosyn. Continue IV fluids Continue IV Tylenol as needed Patient still with drains from the recent surgeries; Removal of those drains as per surgery Infectious disease evaluation pending Mx/diet per Sx. Monitor and replete electrolytes. GERD: On omeprazole, continue DVT prophylaxis: heparin Disposition: Telemetry Please note the above document was generated using voice recognition software. It may contain grammatical, syntax or spelling errors. Any formal questions or concerns about the content, text or information contained within the body of this dictation should be directly addressed to the provider for clarification Admission and Anticipated Discharge Date Admission Date: July 09, 2024 Subjective Patient seen and examined at bedside He is comfortable lying on the bed; not in distress Reports that he feels better overall, reports improvement in belly pain, though he still has much belly pain. Vital signs stable and he is saturating well on room air Physical Exam Physical Exam: Constitutional: Alert oriented x 3; not in distress. Respiratory: b/l vesicular breath sound Cardiovascular: RRR, no murmur, no edema Vessels: no JVD or carotid bruit Chest: normal inspection of chest Abdomen: tenderness; midline surgical incision with 2 openings with drainage of purulent fluid Musculoskeletal: no cyanosis or clubbing, extremities motor strength 5/5 Skin: no rashes, warm and dry normal turgor Neurologic: PERRL, EOMI, accommodation nl, no face palsy, no dysarthria CN's II- XI intact bilaterally and moves all extremities Psychiatric: A+Ox3, euthymic affect Results & Data Results & Data Vital Signs (Past 12 Hours) Vital Signs Temp Pulse Pulse Resp BP Pulse Ox O2 Del Method 07/11/24 15:53 36.8 C 95 H 18 118/79 94 Room Air 07/11/24 11:17 36.7 C 96 H 18 111/74 96 Room Air 07/11/24 09:00 Room Air 07/11/24 07:26 98 H 07/11/24 07:19 36.7 C 99 H 18 108/66 94 Room Air
--- NOTE | 2024-07-11 17:04 | Infectious Disease Consult ---
Date of Service July 11, 2024 Telehealth Information I performed this visit using a real-time telehealth connection between my location and the patients location ([facility]). After connecting through interactive tele-video, patient was identified by name and date of and/or wristband check.Patient (or authorized healthcare patient financial representative) was informed that this was a telemedicine visit and it was being conducted confidentially over secure lines. My office door was closed and no one else was present in the room with me.Patient (or authorized healthcare patient financial representative) provided consent to proceed with the visit, expressed an understanding of privacy and security of the telemedicine visit, and gave permission to have a hospital patient financial representative in the room in order to assist with the visit and to conduct portions of the visit, as needed. I informed the patient (or authorized healthcare patient financial representative) that I reviewed their record and presented the opportunity for them to ask any questions regarding the visit today. The patient agreed to participate. Assessment & Plan (1) Abdominal wound dehiscence: (2) Intra-abdominal abscess post-procedure: (3) Status post exploratory laparotomy: Plan We agree with IV Piperacillin tazobactam which should cover the intraabdominal infection and MSSA growing from abdominal wound dehiscence drainage. Please add IV micafungin 100 mg once daily (based on previous intraabdominal Cx from [facility] growing Shantal parapsilosis and Myerozyma) Would recommend IR guided drainage of the large left subdiaphragmatic abscess. We appreciate the assessment of the surgical team. History of Present Illness History of Present Illness Mr. Glover is a 59-year-old man, incarcerated, with recently complicated hospital course for acute cholangitis who was admitted to [facility] on 07/09/2024 because of abdominal wound dehiscence. He is known to our service since early May 2024 when he was admitted to [facility] because of acute cholangitis and underwent ERCP which demonstrated CBD stone and stricture on 05/07 followed after that by laparoscopic cholecystectomy on 05/08 which was complicated with duodenal perforation and peritonitis requiring ex lap with washout on 05/18. Peritoneal fluid cultures grew ampicillin susceptible Enterococcus faecium and Shantal parapsilosis. He also grew another fundi called Meyerozyma guilliermondii. Per our recommendations, he was placed on IV piperacillin tazobactam and fluconazole initially. CT abdomen pelvis performed on 05/28/2024 showed moderate to large volume ascites with peritoneal enhancement concerning for peritonitis. He underwent IR aspiration of that collection on 05/29 with cultures coming back positive for Shantal parapsilosis. He was eventually sent out on IV piperacillin tazobactam as well as micafungin 100 mg once daily for a total duration of 4 weeks and final duration of antibiotics to be determined based on a repeat CT scan within 3 weeks. Unfortunately, the CT scan was not performed and the patient is now presenting to [facility] with abdominal wound dehiscence and CT scan on admission showing open abdominal wound with several jejunal loops in close proximity to the wound and gas-filled tracts extending from the wound to r im enhancing fluid collections within the abdomen the largest being subdiaphragmatic measuring 7.7 x 4.8 cm as well as multiple right retroperitoneal fluid collection suggestive of abscesses. Id team was consulted for further recommendations and to help guide antibiotic treatment. Allergies Allergy/AdvReac Type Severity Reaction Status Date / Time No Known Allergies Allergy Verified 07/09/24 00:20 Home Medications Medication Instructions Recorded Confirmed Type acetaminophen 500 mg tablet 1,000 mg PO TID PRN Pain 07/09/24 07/09/24 History (Tylenol Extra Strength) cefazolin 1 gram/50 mL in dextrose 50 ml IV Q6H 07/09/24 07/09/24 History (iso-osmotic) intravenous piggyback cyanocobalamin (vitamin B-12) 1,000 mcg IM WK 07/09/24 07/09/24 History 1,000 mcg/mL injection solution docusate sodium 100 mg capsule 100 mg PO BID PRN Constipation 07/09/24 07/09/24 History enoxaparin 40 mg/0.4 mL 40 mg subcut DAILY 07/09/24 07/09/24 History subcutaneous syringe (Lovenox) magnesium hydroxide 400 mg/5 mL 15 ml PO DAILY PRN Constipation 07/09/24 07/09/24 History oral suspension (Milk of Magnesia) nortriptyline 50 mg capsule 50 mg PO HS 07/09/24 07/09/24 History omeprazole 20 mg capsule,delayed 20 mg PO DAILY 07/09/24 07/09/24 History release polyethylene glycol 3350 17 17 g PO DAILY PRN Constipation 07/09/24 07/09/24 History gram/dose oral powder (Miralax) sennosides 15 mg tablet (Laxative 15 mg PO DAILY 07/09/24 07/09/24 History (sennosides)) Patient History Social History Smoking Status: Never smoker Second Hand Exposure: Yes; Do You Dip or Chew Tobacco: No; Tobacco Cessation Education Requested by Patient: No Hx Alcohol Use: No Hx Substance Use: No Preferred Language: Korean Traveling Accountant Required: No Beliefs That Will Affect Care: None Current Living Situation: Other Current Living Situation Comment: [facility] Other Information That Helps Us Care for You: No Feels Safe at Home: Yes Safety Concerns: Feels Safe At This Time Assistive Devices: None Review of Systems Neg except for what was mentioned in the H&P. Physical Exam Couldn't be obtained as the visit was conducted via telemed. Results & Data Vital Signs (Past 12 Hours) Vital Signs Temp Pulse Pulse Resp BP Pulse Ox O2 Del Method 07/11/24 16:00 99 H 07/11/24 15:53 36.8 C 95 H 18 118/79 94 Room Air 07/11/24 11:17 36.7 C 96 H 18 111/74 96 Room Air 07/11/24 09:00 Room Air 07/11/24 07:26 98 H 07/11/24 07:19 36.7 C 99 H 18 108/66 94 Room Air Laboratory Results Microbiology: 07/09: Superficial abdominal wound culture growing MSSA 07/09: 1 set of blood culture negative to date 07/10: Superficial abdominal wound culture growing MSSA Diagnostic Findings CT scan abdomen and pelvis on 07/10: 1. Extensive postoperative findings within the abdomen. Status post gastrojejunostomy with open abdominal wound. No oral contrast within the wound to definitively indicate a fistula. However, several jejunal loops are in close proximity to the wound and gas filled tracks extend from the wound to rim- enhancing fluid collections within the abdomen. Noncontrast containing fistulas cannot be excluded. 2. Numerous rim-enhancing fluid collections within the abdomen and pelvis, the largest of which is a left subdiaphragmatic collection which measures 7.7 x 4.8 cm. Multiple right retroperitoneal fluid collections. These are suggestive of multifocal abscesses. 3. No bowel obstruction. 4. Small bilateral pleural effusions with subpleural opacity suggestive of atelectasis. 5. Common bile duct stent in place. No biliary ductal dilatation.
[2024-07-12 07:29] LABS: Hematocrit (blood only) 29.6 % (42.0-52.0); Hemoglobin 9.7 g/dl (14.0-18.0); Mean Corpuscular Hemoglobin 27.1 pg (25.0-34.0); Mean Corpuscular Hgb Conc 32.8 g/dL (32.0-36.0); Mean Corpuscular Volume 82.7 fL (80.0-100.0); Mean Platelet Volume 8.8 fL (9.4-12.4); Platelet Count 511 K/uL (130-400); RDW Standard Deviation 48.7 fL (36.4-46.3); Red Blood Count 3.58 M/uL (4.70-6.10); White Blood Count 13.06 K/ul (4.8-10.8)
[2024-07-12 07:45] LABS: BUN Creatinine Ratio 7.8 (10-20); Calcium 7.4 mg/dl (8.6-10.3); Creatinine Clr Calc Pharmacy 130.1 ml/min; Est GFR (African American) 124.2 ml/min; Est GFR (Non-African American) 107.2 ml/min; Magnesium 1.5 mg/dl (1.7-2.4); Phosphorus 3.5 mg/dl (2.5-4.9); Potassium 3.9 mmol/L (3.5-5.1)
--- NOTE | 2024-07-12 11:11 | Surgery Progress Note ---
Date of Service July 12, 2024 Assessment & Plan (1) Abdominal wound dehiscence: (2) Sepsis: Plan 59-year-old man presents after extensive surgical/gastrointestinal history . He has a superficial dehiscence of his midline wound with thick purulent fluid and visible suture material Repeat CT scan with IV and oral contrast on 07/10/2024 showing no contrast extending to midline wound however tracts with gas are present. Occult fistula cannot be excluded. There is still moderate size LUQ subdiaphragmatic abscess present measuring 7 cm in which ID is recommending IR drainage. His two dioni drians which are no longer holding suction and there is purulent drainage coming from around dioni drain sites. Given this, would recommend transfer back to [place] for IR assessment, intra-abdominal abscess drainage , and evaluation of his midline wound given increasing midline drainage and visible suture material. Continue IV abx and pain management. Discussed with hospitalist and Dr. Cool. Admission and Anticipated Discharge Date Admission Date: July 09, 2024 Subjective patient having more abdominal pain today, more generalized and more pain at RUQ drain site, very tender at skin has not had liquids today, tolerated okay last night no fevers or chills Physical Exam Constitutional: WD/WN, vitals as above + frail appearing and cooperative; no acute distress and not ill appearing Respiratory: normal respiratory effort; no respiratory distress and no labored breathing Gastrointestinal (Abdomen): Inspection/Auscultation: abdomen normal to inspection, + abdominal surgical incision and + abdominal surgical drain present; abdomen not distended and no visible herniation Percussion/Palpation: + abdomen tender (RUQ drain site, midline wound, and upper abdomen) and abdomen soft; no guarding, abdomen not rigid and abdomen not firm Midline laparotomy incision with dehiscence of superior aspect with open wound about 5 cm x 2 cm with purulent drainage. There is visible suture material present with what appears to be weakening of the fascia and sutures. NO bowel visible or evisceration. Very tender at midline wound. Drains with purulent drainage however not holding suction. Purulent drainage coming from around drain sites. RLQ drain suture is no longer intact. Skin: + rash (upper abdomen, chest, left forea rm) Psychiatric: Orientation: alert and oriented x 3 Results & Data Vital Signs (Past 12 Hours) Vital Signs Temp Pulse Pulse Resp BP BP Pulse Ox 07/12/24 10:52 36.4 C L 104 H 18 121/82 94 07/12/24 08:32 07/12/24 07:26 36.7 C 99 H 18 116/78 95 07/12/24 07:09 97 H 07/12/24 03:02 36.8 C 122 H 18 140/99 93 07/11/24 23:22 37.6 C H 104 H 18 111/75 95 O2 Del Method 07/12/24 10:52 Room Air 07/12/24 08:32 Room Air 07/12/24 07:26 Room Air 07/12/24 07:09 07/12/24 03:02 Room Air 07/11/24 23:22 Room Air Laboratory Results 07/12/24 Range/Units 06:53 WBC 13.06 H (4.8-10.8) K/ul RBC 3.58 L (4.70-6.10) M/uL Hgb 9.7 L (14.0-18.0) g/dl Hct 29.6 L (42.0-52.0) % MCV 82.7 (80.0-100.0) fL MCH 27.1 (25.0-34.0) pg MCHC 32.8 (32.0-36.0) g/dL RDW Std Deviation 48.7 H (36.4-46.3) fL RDW Coeff of [place] 16.0 H (11.5-14.5) % Plt Count 511 H (130-400) K/uL MPV 8.8 L (9.4-12.4) fL Sodium 133 L (136-145) mmol/L Potassium 3.9 D (3.5-5.1) mmol/L Chloride 102 (98-107) mmol/L Carbon Dioxide 26 (21-32) mmol/L Anion Gap 5 (3-11) BUN 5 L (6-23) mg/dl Creatinine 0.64 (0.6-1.4) mg/dl Est Cr Clr Drug Dosing 130.1 ml/min Est GFR ( Amer) 124.2 ml/min Est GFR (Non-Af Amer) 107.2 ml/min BUN/Creatinine Ratio 7.8 L (10-20) Glucose 107 H (70-99(Fasting)) mg/dl Calcium 7.4 L (8.6-10.3) mg/dl Phosphorus 3.5 (2.5-4.9) mg/dl Magnesium 1.5 L (1.7-2.4) mg/dl
[2024-07-12] MEDS: CASPOFUNGIN 70 MG in SODIUM CHLORIDE 0.9% 250 ML IV ONE (11:13)
[2024-07-12] MEDS: MAGNESIUM SULFATE / D5W 1 GM/100 ML BAG IV SCH (11:18)
[2024-07-12] MEDS: diphenhydrAMINE HCL 25 MG/10 ML UDC PO PRN (13:05)
--- NOTE | 2024-07-12 14:36 | Hospitalist Progress Note ---
Date of Service July 12, 2024 Assessment & Plan (1) Abdominal wound dehiscence: Plan: 59-year-old male from [facility] who recently had complicated hospital course for acute cholangitis comes because of abdominal wound dehiscence and found to have abscess. Patient presented to [facility] with abdominal pain and jaundice and found to have choledocholithiasis and acute cholangitis and transferred to [place] on 05/06/2024. As per d/c summary from [place]:" "" Underwent ERCP with sphincterectomy and balloon sphincteroplasty on 05/07 and noted to have single stone within the duct. Underwent laparoscopic cholecyst ectomy on 05/08. On overnight 05/12 to 05/13 he had episodes of hematemesis and noted to have increasing abdominal distention and NGT was placed with dark bloody output and lactic acid greater than 9 and CTA without acute extravasation however demonstrated large gastric distention with a blood concerning for sphincterotomy bleed versus upper GI bleed and moderate right RP hemorrhage. He was transfused 3 units of PRBCs and transferred to ICU. On 05/13 he was intubated for airway protection. ERCP done on 05/14 showed retained CBD stone and bleeding at the site of the prior sphincterectomy and a possible small contained perforation. The initial stent was noted to be in major papilla and was removed and fully covered metal stent was placed in the CBD. HIDA was negative. Hemoglobin has been stable but required pressors. Off pressors from 05/16. ID added meropenem. The patient was having persistent elevated WBC. C. difficile was negative. CT abdominal and pelvis showed intra-abdominal collections. Return to the OR for increasing pressor requirements and worsening exam and found to have duodenal perforation and purulent intra-abdominal fluid was washed out and ABThera placed. Again return to the OR on 05/21 at which time he underwent pyloric exclusion and gastrojejunal anastomosis and 3 drains were left in place at the time. On 05/[address] abdominal pelvis demonstrated large volume ascites within the subdiaphragmatic space with mass effect of the hepatic dome and stomach. On 05/29 Zosyn and Diflucan per ID recommendations and had IR aspiration of 460 mL of pleural purulent fluid. Patient was extubated and off of pressors. On 05/30 NG tube was DC'd and diet was advanced to clear liquid diet and antifungal changed from Diflucan to micafungin per ID recommendations as cultures grew MADELINEYMA SARAHI. 06/02 follow-up CT abdomen pelvis showed no evidence of leak at the gastrojejunostomy and decreased size of the largest collection in the left subdiaphragmatic region. Midline incision draining purulent bilious drainage at the umbilicus and a small fascial dehiscence palpated below it packed with small piece 4 and 4. On 06/04 abscess was too small to drain by IR drain so was continue with antibiotic treatment. Final ID recommendations was to continue IV micafungin and and Zosyn for 4 weeks. 06/05 PICC line placed for long-term vascular access for TPN antibiotics. On 06/06/2024 patient was discharged [facility]." Patient followed up with surgery on June 20 and plan was to repeat CT scan in 1 week and follow-up in clinic same week and recommended to continue local wound and drain care. Patient's seem to had CT scan on July 03 but not followed up with surgery yet. Seems he was in [facility] for 1 week and discharged back to [facility]. Completed antibiotics on June 21. Was placed on Lovenox until July 06, 2024. Patient stated he was having on and off abdominal pain since discharge. The night [employer], upper part of the incision opened up and was draining and was sent here. CT scan showing 1.6X 5.5 cm fluid collection in the anterior abdominal wall with subcutaneous emphysema. ER spoke w/surgery pollution control engineer and was okay to keep the patient here and will be evaluated. IV Vanco and Zosyn given in the ER. Patient has no fevers. Denies any headache. No runny nose or sore throat. No difficulty swallowing. Denies chest pain or shortness of breath. No nausea. Normal bowel and blood movements. Blood pressure somewhat soft in the ER. Has leukocytosis. Lactic acid was okay. Abdominal wound dehiscence Anterior abdominal wall abscess Complicated surgical history as above Comes with incisional wound dehiscence in the upper part of incision. Drainage of brownish fluid. Admitting CTAP scan showing 1.6 x 1.3x 5.5 central fluid collection in the anterior abdominal wall with subcutaneous emphysema. Repeat CTAP w/ PO and IV contrast: multiple abscess, no fistulas noted per read. Culture from drainage growing staphylococcus species, MSSA Blood culture- NGTD On IV Vanco 9/2 and Zosyn 9/2, DC vanc 07/11, continue zosyn. Continue IV fluids Continue IV Tylenol as needed Patient still with drains from the recent surgeries; Removal of those drains as per surgery Infectious disease matheus butt w/ zosyn and recommended caspofungin (d/w ID on 07/12). Mx/diet per Sx. Monitor and replete electrolytes. d/w Sx, recommended transfer. Initiated. Pt accepted. Accepting physician Dr. Reynolds. Will dc to [facility] once bed available. GERD: On omeprazole, continue DVT prophylaxis: heparin Disposition: Telemetry total time 60 minutes. Please note the above document was generated using voice recognition software. It may contain grammatical, syntax or spelling errors. Any formal questions or concerns about the content, text or information contained within the body of this dictation should be directly addressed to the provider for clarification Admission and Anticipated Discharge Date Admission Date: July 09, 2024 Subjective Patient seen and examined at bedside He is comfortable lying on the bed; not in distress Reports that he feels belly pain about the same as yesterday, better than presentation. He has pus coming out of one of the drain insertion site at abdomen. Vital signs stable and he is saturating well on room air Physical Exam Physical Exam: Constitutional: Alert oriented x 3; not in distress. Respiratory: b/l vesicular breath sound Cardiovascular: RRR, no murmur, no edema Vessels: no JVD or carotid bruit Chest: normal inspection of chest Abdomen: tenderness; midline surgical incision with 2 openings with drainage of purulent fluid Musculoskeletal: no cyanosis or clubbing, extremities motor strength 5/5 Skin: no rashes, warm and dry normal turgor Neurologic: PERRL, EOMI, accommodation nl, no face palsy, no dysarthria CN's II- XI intact bilaterally and moves all extremities Psychiatric: A+Ox3, euthymic affect Results & Data Results & Data Vital Signs (Past 12 Hours) Vital Signs Temp Pulse Pulse Resp BP BP Pulse Ox 07/12/24 10:52 36.4 C L 104 H 18 121/82 94 07/12/24 08:32 07/12/24 07:26 36.7 C 99 H 18 116/78 95 07/12/24 07:09 97 H 07/12/24 03:02 36.8 C 122 H 18 140/99 93 O2 Del Method 07/12/24 10:52 Room Air 07/12/24 08:32 Room Air 07/12/24 07:26 Room Air 07/12/24 07:09 07/12/24 03:02 Room Air
[2024-07-12] MEDS ORDERED: Nursing to Pharmacy Communication SCH (18:30)
[2024-07-13] MEDS ORDERED: CASPOFUNGIN 50 MG in SODIUM CHLORIDE 0.9% 250 ML IV SCH (10:00)
--- NOTE | 2024-07-13 13:47 | Discharge Summary ---
Date of Service July 12, 2024 Admission HPI Per Admitting Provider 59-year-old male from [facility] who recently had complicated hospital course for acute cholangitis comes because of abdominal wound dehiscence and found to have abscess. Patient presented to [facility] with abdominal pain and jaundice and found to have choledocholithiasis and acute cholangitis and transferred to [facility] on 05/06/2024. As per d/c summary from [facility]:"Underwent ERCP with sphincterectomy and balloon sphincteroplasty on 05/07 and noted to have single stone within the duct. Underwent laparoscopic cholecystectomy on 05/08. On overnight 05/12 to 05/13 he had episodes of hematemesis and noted to have increasing abdominal distention and NGT was placed with dark bloody output and lactic acid greater than 9 and CTA without acute extravasation however demonstrated large gastric distention with a blood concerning for sphincterotomy bleed versus upper GI bleed and moderate right RP hemorrhage. He was transfused 3 units of PRBCs and transferred to ICU. On 05/13 he was intubated for airway protection. ERCP done on 05/14 showed retained CBD stone and bleeding at the site of the prior sphincterectomy and a possible small contained perforation. The initial stent was noted to be in major papilla and was removed and fully covered metal stent was placed in the CBD. HIDA was negative. Hemoglobin has been stable but required pressors. . Off pressors from 05/16. ID added meropenem. The patient was having persistent elevated WBC. C. difficile was negative. CT abdominal and pelvis showed intra-abdominal collections. Return to the OR for increasing pressor requirements and worsening exam and found to have duodenal perforation and purulent intra-abdominal fluid was washed out and ABThera placed. Again return to the OR on 05/21 at which time he underwent pyloric exclusion and gastrojejunal anastomosis and 3 drains were left in place at the time. On 05/[address] abdominal pelvis demonstrated large volume ascites within the subdiaphragmatic space with mass effect of the hepatic dome and stomach. On 05/29 Zosyn and Diflucan per ID recommendations and had IR aspiration of 460 mL of pleural purulent fluid. Patient was extubated and off of pressors. On 05/30 NG tube was DC'd and diet was advanced to clear liquid diet and antifungal changed from Diflucan to micafungin per ID recommendations as cultures grew MEYEROZYMA GUILLLMARKELI. 06/02 follow-up CT abdomen pelvis showed no evidence of leak at the gastrojejunostomy and decreased size of the largest collection in the left subdiaphragmatic region. Midline incision draining purulent bilious drainage at the umbilicus and a small fascial dehiscence palpated below it packed with small piece 4 and 4. On 06/04 abscess was too small to drain by IR drain so was continue with antibiotic treatment. Final ID recommendations was to continue IV micafungin and and Zosyn for 4 weeks. 06/05 PICC line placed for long-term vascular access for TPN antibiotics. On 06/06/2024 patient was discharged to [facility]." Seems he was in [facility] for 1 week and discharged back [facility]. Completed antibiotics on June 21. Was placed on Lovenox until July 06, 2024. Patient states he is having on and off abdominal pain since discharge. Last night upper part of the incision opened up and was draining and was sent here. CT scan showing 1.6X 5.5 cm fluid collection in the anterior abdominal wall with subcutaneous emphysema. ER talked to surgery and was okay to keep the patient here and will be evaluated. IV Vanco and Zosyn given in the ER. Patient has no fevers. Patient staes appetite just came back yesterday. Denies any headache. No runny nose or sore throat. No difficulty swallowing. Denies chest pain or shortness of breath. No nausea. Normal bowel and blood movements. Blood pressure somewhat soft in the ER. Has leukocytosis. Lactic acid is okay. Patient followed up with surgery on June 20 and plan was to repeat CT scan in 1 week and follow-up in clinic same week and recommended to continue local wound and drain care. Patient's seem to had CT scan on July 03 but not followed up with surgery yet. Past medical history. Electrolyte abnormalities. Acute hypoxic respiratory failure. Postoperative ileus. Duodenal perforation. Moderate malnutrition. Choledocholithiasis. Acute cholangitis. Gastrointestinal hemorrhage with hematemesis. Duodenal ulcer. CHARAN. Hydroureter on right. Peritonitis due to bile. Acute blood loss anemia. Septic shock. Hemorrhagic shock. Elevated LFTs. Past surgical history. EGD. EGD with endoscopic ultrasound. ERCP. Exploration of abdomen. Exploratory laparotomy. IR aspiration of abscess. Diagnostic laparoscopy. Laparoscopic cholecystectomy with cholangiogram. Small bowel resection. Social history. No substance use on file. Family history no family history on file Admission Exam Per Admitting Provider General- adult Head- atraumatic Eyes- PERRL. ENT- oropharynx clear Neck- supple, no JVD. Lungs- clear to auscultation no wheezing or crackles. Heart- regular rhythm; no murmur, no gallop. Abdomen- normal bowel sounds, soft, drains seen. Opening with mild drainage seen on upper part of recent incision, small opening seen at umbilical region Extremities- no pretibial edema, no erythema seen Neuro- alert, oriented PERRL, no facial palsy; no dysarthria; moves extremities Principal Diagnosis Post op complication, abd wall abscess. Discharge Exam Constitutional: Alert oriented x 3; not in distress. Respiratory: b/l vesicular breath sound Cardiovascular: RRR, no murmur, no edema Vessels: no JVD or carotid bruit Chest: normal inspection of chest Abdomen: tenderness; midline surgical incision with 2 openings with drainage of purulent fluid Musculoskeletal: no cyanosis or clubbing, extremities motor strength 5/5 Skin: no rashes, warm and dry normal turgor Neurologic: PERRL, EOMI, accommodation nl, no face palsy, no dysarthria CN's II- XI intact bilaterally and moves all extremities Psychiatric: A+Ox3, euthymic affect Discharge Data Allergies Allergy/AdvReac Type Severity Reaction Status Date / Time No Known Allergies Allergy Verified 07/09/24 00:20 Consultations 07/09/24 05:47 ED Decision to Admit Stat 07/09/24 06:00 Consult General Surgery Stat 07/11/24 08:37 Consult Infectious Diseases Routine 07/12/24 13:17 Burn CD for patient Stat Ordered Studies 07/08/24 23:40 CT abd pelvis IV con only Stat 07/10/24 06:00 CT abd pelvis oral and IV con Routine Hospital Course (1) Abdominal wound dehiscence: 59-year-old male from [facility] who recently had complicated hospital course for acute cholangitis comes because of abdominal wound dehiscence and found to have abscess. Patient presented to [facility] with abdominal pain and jaundice and found to have choledocholithiasis and acute cholangitis and transferred to [facility] on 05/06/2024. As per d/c summary from [facility]:" "" Underwent ERCP with sphincterectomy and balloon sphincteroplasty on 05/07 and noted to have single stone within the duct. Underwent laparoscopic cholecystectomy on 05/08. On overnight 05/12 to 05/13 he had episodes of hematemesis and noted to have increasing abdominal distention and NGT was placed with dark bloody output and lactic acid greater than 9 and CTA without acute extravasation however demonstrated large gastric distention with a blood concerning for sphincterotomy bleed versus upper GI bleed and moderate right RP hemorrhage. He was transfused 3 units of PRBCs and transferred to ICU. On 05/13 he was intubated for airway protection. ERCP done on 05/14 showed retained CBD stone and bleeding at the site of the prior sphincterectomy and a possible small contained perforation. The initial stent was noted to be in major papilla and was removed and fully covered metal stent was placed in the CBD. HIDA was negative. Hemoglobin has been stable but required pressors. Off pressors from 05/16. ID added meropenem. The patient was having persistent elevated WBC. C. difficile was negative. CT abdominal and pelvis showed intra-abdominal collections. Return to the OR for increasing pressor requirements and worsening exam and found to have duodenal perforation and purulent intra-abdominal fluid was washed out and ABThera placed. Again return to the OR on 05/21 at which time he underwent pyloric exclusion and gastrojejunal anastomosis and 3 drains were left in place at the time. On 05/[address] abdominal pelvis demonstrated large volume ascites within the subdiaphragmatic space with mass effect of the hepatic dome and stomach. On 05/29 Zosyn and Diflucan per ID recommendations and had IR aspiration of 460 mL of pleural purulent fluid. Patient was extubated and off of pressors. On 05/30 NG tube was DC'd and diet was advanced to clear liquid diet and antifungal changed from Diflucan to micafungin per ID recommendations as cultures grew MEYEROZYMA GUILLLIERMONDI. 06/02 follow-up CT abdomen pelvis showed no evidence of leak at the gastrojejunostomy and decreased size of the largest collection in the left subdiaphragmatic region. Midline incision draining purulent bilious drainage at the umbilicus and a small fascial dehiscence palpated below it packed with small piece 4 and 4. On 06/04 abscess was too small to drain by IR drain so was continue with antibiotic treatment. Final ID recommendations was to continue IV micafungin and and Zosyn for 4 weeks. 06/05 PICC line placed for long-term vascular access for TPN antibiotics. On 06/06/2024 patient was discharged to [facility]." Patient followed up with surgery on June 20 and plan was to repeat CT scan in 1 week and follow-up in clinic same week and recommended to continue local wound and drain care. Patient's seem to had CT scan on July 03 but not followed up with surgery yet. Seems he was in [facility] for 1 week and discharged back [facility]. Completed antibiotics on June 21. Was placed on Lovenox until July 06, 2024. Patient stated he was having on and off abdominal pain since discharge. The night [employer], upper part of the incision opened up and was draining and was sent here. CT scan showing 1.6X 5.5 cm fluid collection in the anterior abdominal wall with subcutaneous emphysema. ER spoke w/surgery personnel recruiter and was okay to keep the patient here and will be evaluated. IV Vanco and Zosyn given in the ER. Patient has no fevers. Denies any headache. No runny nose or sore throat. No difficulty swallowing. Denies chest pain or shortness of breath. No nausea. Normal bowel and blood movements. Blood pressure somewhat soft in the ER. Has leukocytosis. Lactic acid was okay. Abdominal wound dehiscence Anterior abdominal wall abscess Complicated surgical history as above Comes with incisional wound dehiscence in the upper part of incision. Drainage of brownish fluid. Admitting CTAP scan showing 1.6 x 1.3x 5.5 central fluid collection in the anterior abdominal wall with subcutaneous emphysema. Repeat CTAP w/ PO and IV contrast: multiple abscess, no fistulas noted per read. Culture from drainage growing staphylococcus species, MSSA Blood culture- NGTD On IV Vanco 07/09 and Zosyn 07/09, DC vanc 07/11, continue zosyn. Continue IV fluids Continue IV Tylenol as needed Patient still with drains from the recent surgeries; Removal of those drains as per surgery Infectious disease evaled, ok w/ zosyn and recommended caspofungin (d/w ID on 07/12). Mx/diet per Sx. Monitor and replete electrolytes. d/w Sx, recommended transfer. Initiated. Pt accepted. Accepting physician Dr. Reynolds. Will dc to [facility] once bed available. GERD: On omeprazole, continue DVT prophylaxis: heparin Disposition: Telemetry He was transferred to [facility]. Please note the above document was generated using voice recognition software. It may contain grammatical, syntax or spelling errors. Any formal questions or concerns about the content, text or information contained within the body of this dictation should be directly addressed to the provider for clarification Home Health Attestation I certify that this patient is under my care and that I, or a physicians front end assistant working with me, had a face to-face encounter that meets the home health [id number] encounter requirements with this patient. The encounter with the patient was in whole, or in part, for the following medical condition, which is the primary reason for home health care (list medical condition): I certify that, based on my findings, the following services are medically necessary home health services: My clinical findings support the need for the above services because: Further, I certify that my clinical findings support that this patient is homebound (i.e. absences from home require considerable and taxing effort and are for medical reasons or jewish services or infrequently or of short duration when for other reasons) because: Certification for Home Health Services: Based on the above findings, I certify that this patient is confined to the home and needs intermittent fpc care, physical therapy and/or speech therapy or continues to need occupational therapy. The patient is under my care, and I have initiated the establishment of the plan of care. This patient will be followed by a physician who will periodically review the plan of care. Total Time Total Time Spent Total Time Spent (In Minutes): 60 Discharge Plan Discharge Items Patient Disposition: Transfer Acute Care Hospital Reason For Visit: wound dehisscence Discharge Diagnosis: Abdominal wound dehiscence Sepsis Abdominal abscess, postoperative complication Activity: As commented below Activity Comment: as per tertiary care recommendation. Non-emergency contact: Primary Care Provider Call non-emergency contact if: you have any medication questions Follow-up/Referrals: Nelly SOLO [Primary Care Provider] - Diet: Nothing by Mouth Addtl Attending Provider Instructions: Your prior to arrival Home medications are continued as it is in discharge med rec. Your current inpatient medications are copied and pasted below for the sake of comparison at [facility]. Current Inpatient Medications Acetaminophen (Acetaminophen 325 Mg Tab) 650 mg PO Q4H PRN PRN Reason: Pain or Fever Stop: 08/09/24 00:16 Last Admin: 07/10/24 00:30 Dose: 650 mg Diphenhydramine HCl (Diphenhydramine Hcl 25 Mg/10 Ml Udc) 25 mg PO Q6H PRN PRN Reason: Allergic Reaction Stop: 08/11/24 11:05 Last Admin: 07/12/24 13:05 Dose: 25 mg Heparin Sodium (Porcine) (Heparin Sod 5,000 Unit/0.5 Ml Vial) 5,000 units SQ Q8 [facility] Stop: 08/09/24 13:59 Last Admin: 07/12/24 13:09 Dose: Not Given Piperacillin Sod/Tazobactam Sod (Zosyn) 4.5 gm in 100 mls @ 25 mls/hr IV Q8H [facility] Stop: 07/16/24 07:59 Last Infusion: 07/12/24 12:21 Dose: Infused Dextrose/Sodium Chloride (D5w And Nss) 1,000 mls @ 80 mls/hr IV .[id number] [facility] Stop: 08/08/24 14:29 Last Admin: 07/12/24 06:29 Dose: 80 mls/hr Caspofungin 50 mg/ Sodium (Chloride) 260 mls @ 260 mls/hr IV Q24H [facility] Stop: 07/22/24 09:59 Morphine Sulfate (Morphine Sulfate 2 Mg/Ml Carp) 2 mg IV Q3H PRN PRN Reason: Moderate Pain (Scale 4, 5, 6) Stop: 07/23/24 13:59 Morphine Sulfate (Morphine Sulfate 2 Mg/Ml Carp) 4 mg IV Q3H PRN PRN Reason: Severe Pain (Scale 7, 8, 9,10) Stop: 07/23/24 13:59 Last Admin: 07/12/24 08:13 Dose: 4 mg Nitroglycerin (Nitroglycerin Sl 0.4 Mg/Tab Tab) 0.4 mg SL Q5M PRN PRN Reason: Chest Pain Stop: 08/08/24 09:10 Nortriptyline HCl (Nortriptyline Hcl 25 Mg Cap) 50 mg PO HS [facility] Stop: 08/08/24 20:59 Last Admin: 07/11/24 20:59 Dose: 50 mg Pantoprazole Sodium (Pantoprazole 40 Mg Tab) 40 mg PO DAILY [facility] Stop: 08/08/24 09:29 Last Admin: 07/12/24 08:24 Dose: 40 mg Polyethylene Glycol (Polyethylene (Miralax) 17 Gm Pack) 17 gm PO DAILY PRN PRN Reason: Constipation Stop: 08/08/24 09:10 Pending Studies at Discharge: Yes Stand-Alone Forms: My [facility] Skilled Items Patient informed of condition?: Yes DNR: No Discharge Level of Care: Other Communicable Disease: No Discharge Prognosis: Other Lines: Peripheral IV Urinary Catheter: No Medications and DC Order Prescriptions: Continued acetaminophen [Tylenol Extra Strength] 500 mg Tablet 1,000 mg PO TID PRN (Reason: Pain) cefazolin in dextrose (iso-os) 1 gram/50 mL Piggyback 50 ml IV Q6H Rx Instructions: STARTED 07/04/24 FOR 10 DAYS, ENDS 07/14/24 magnesium hydroxide [Milk of Magnesia] 400 mg/5 mL Suspension 15 ml PO DAILY PRN (Reason: Constipation) Laxative (sennosides) 15 mg Tablet 15 mg PO DAILY cyanocobalamin (vitamin B-12) 1,000 mcg/mL Solution 1,000 mcg IM WK Rx Instructions: WEDNESDAYS docusate sodium 100 mg Capsule 100 mg PO BID PRN (Reason: Constipation) omeprazole 20 mg Capsule,Delayed Release(Dr/Ec) 20 mg PO DAILY polyethylene glycol 3350 [Miralax] 17 gram/dose Powder 17 g PO DAILY PRN (Reason: Constipation) nortriptyline 50 mg Capsule 50 mg PO HS enoxaparin [Lovenox] 40 mg/0.4 mL Syringe 40 mg SUBCUT DAILY Discharge Orders: Discharge Order (Routine); Ordered 07/12/24 Ordered By: Zelalem Munson Admission Data Admit Date/Time: 07/09/24 06:39 Attending Provider: Zelalem Munson Admit Provider: Anton Clark Primary Care Provider: Nelly SOLO Other Providers: Anton Clark; Gorod Carballo; Fredis Shields; Bryan Brandon; Giancarlo Moreira I.; Kervin Powell II; Analilia Echeverria; Robin Griffiths; Randy Stock; Adam Frye
== END 2024-07-12 20:54 | disposition short-term general hospital (02) | DRG 863 ==
LOC: ED 23:07 → EDINP 07-09 06:39 → SUATTDRO 07-09 06:39 → 2S 07-09 13:48